=== PATIENT | female | born 1945 | race Caucasian/White ===

== ENCOUNTER 2018-10-13 16:38 | Emergency (ER) | payer MEDICARE ==
[2018-10-13 16:55] VITALS: BP 143/63
--- NOTE | 2018-10-13 17:15 | UC ---
Hip/Pelvis Pain - HPI Summary HPI Summary: 73-year-old woman comes in with a chief complaint of left-sided pelvic and hip pain status post her a fall 2 weeks ago. Patient tripped and fell landing on her knees and left side. She's had pain primarily in the groin left ischial protuberance left SI left hip area. Pain is worse with palpation and with movement and ambulation. Today the patient went to the chiropractic and she feels like the manipulation helped decrease her pain. Her chiropractic was concerned the possibility of a fracture and recommended imaging. No low back pain. Legs feel better. She has been able to walk but with some pain. She does occasionally have some burning sensation going down her left leg. No change in urination. She does have chronic GI issues which have not changed. - History Of Current Complaint Chief Complaint: UCGeneralIllness Stated Complaint: SP FALL-LT HIP INJURY Time Seen by Provider: 10/13/18 16:49 Pain Intensity: 0 - Allergies/Home Medications Allergies/Adverse Reactions: Allergies Allergy/AdvReac Type Severity Reaction Status Date / Time cisplatin Allergy Unknown Verified 10/13/18 17:04 Reaction Details fenoprofen Allergy Anaphylatic Verified 10/13/18 17:04 Shock hydrochlorothiazide Allergy Unknown Verified 10/13/18 17:04 Reaction Details hydrocodone Allergy Unknown Verified 10/13/18 17:04 Reaction Details naproxen Allergy Unknown Verified 10/13/18 17:04 Reaction Details propoxyphene [From Darvon] Allergy Unknown Verified 10/13/18 17:04 Reaction Details Tetanus Vaccines and Toxoid Allergy Anaphylatic Verified 10/13/18 17:04 Shock bee Allergy Anaphylatic Uncoded 10/13/18 17:04 Shock Home Medications: Home Medications Aspirin EC TAB* [Ecotrin EC Low Dose 81 MG*] 81 mg PO DAILY 10/13/18 [History Confirmed 10/13/18] Atenolol TAB* [Tenormin TAB* 25 MG] 25 mg PO DAILY 10/13/18 [History Confirmed 10/13/18] Cyanocobalamin TAB* [Vitamin B12 TAB*] 1,000 mcg PO DAILY 10/13/18 [History Confirmed 10/13/18] Dicyclomine CAP* [Bentyl CAP*] 1 tab TID 10/13/18 [History Confirmed 10/13/18] EPINEPHrine [Epipen 2-Quirino] 1 syr ONCE PRN 10/13/18 [History Confirmed 10/13/18] Folic Acid 1 tab DAILY 10/13/18 [History Confirmed 10/13/18] Gabapentin CAP(*) [Neurontin 300 CAP(*)] 300 mg DAILY 10/13/18 [History Confirmed 10/13/18] Mesalamine [Asacol Hd] 800 mg PO BID 10/13/18 [History Confirmed 10/13/18] Pantoprazole TAB * [Protonix TAB*] 40 mg PO DAILY 10/13/18 [History Confirmed ] Polyethylene Glycol 3350* [Miralax*] 1 packet DAILY 10/13/18 [History Confirmed 10/13/18] Simvastatin [Zocor] 40 mg PO DAILY 10/13/18 [History Confirmed 10/13/18] Sucralfate TAB* [Carafate*] 1 gm PO QID 10/13/18 [History Confirmed 10/13/18] amLODIPine TAB* [Norvasc 5 mg TAB*] 1 tab DAILY 10/13/18 [History Confirmed 08/26] metFORMIN* [Glucophage 1000 MG TAB *] 750 mg DAILY 10/13/18 [History Confirmed 10/13/18] PMH/Surg Hx/FS Hx/Imm Hx Previously Healthy: Yes Endocrine History: Diabetes GI/ History: Gastroesophageal Reflux - Surgical History Surgical History: Yes Surgery Procedure, Year, and Place: C SECTION, PLATE AND SCREWS LEFT WRIST, RIGHT ARM SURGERY. [facility] - Family History Known Family History: Positive: Non-Contributory - Social History Alcohol Use: Rare Substance Use Type: None Smoking Status (MU): Light Every Day Tobacco Smoker Type: Cigarettes Amount Used/How Often: 6 CIGS/DAY Review of Systems All Other Systems Reviewed And Are Negative: Yes Constitutional: Positive: Negative Skin: Positive: Bruising - b/l knees Eyes: Positive: Negative ENT: Positive: Negative Respiratory: Positive: Negative Cardiovascular: Positive: Negative Gastrointestinal: Positive: Negative Motor: Positive: Negative Neurovascular: Positive: Negative Musculoskeletal: Positive: Other: - SEE HPI Neurological: Positive: Other - see hpi Psychological: Positive: Negative Is Patient Immunocompromised?: No Physical Exam Triage Information Reviewed: Yes Appearance: Well-Appearing, Well-Nourished, Pain Distress - MILD WITH ROM Vital Signs: Initial Vital Signs Temp 98.4 F 10/13/18 16:49 Pulse 84 10/13/18 16:49 Resp 22 10/13/18 16:49 BP 143/63 10/13/18 16:49 Pulse Ox 98 10/13/18 16:49 Vital Signs Reviewed: Yes Eye Exam: Normal Eyes: Positive: Conjunctiva Clear Neck: Positive: Supple Respiratory: Positive: No respiratory distress Musculoskeletal: Positive: Other: - Tender to palpation in the left sacroiliac and iliac crest. Mild tenderness over the left proximal femur greater tuberosity. Pain decreases the range of motion in the left hip. Normal sensation distally in both legs. Feet ankles knees have full range of motion full-strength. Right hip has full range of motion full-strength. Patellar reflexes 1+ bilaterally. Neurological: Positive: Alert Psychological: Positive: Normal Response To Family, Age Appropriate Behavior Skin: Positive: Other - Ecchymosis bilateral knees Hip Injury Course/Dx - Course Course Of Treatment: Patient Name: FERNANDA BLUE Medical Record#: [id number] Ordering Physician: Ronnie Christie MD Acct.#: [id number] : 1945 Age: 73 Sex: F Location: [facility] [place] Exam Date: 10/13/181704 ADM Status: REG ER Order Information: CT PELVIS W/O Accession Number: [id number] CPT: 54325 INDICATION: Left hip injury. COMPARISON: There are no relevant prior studies available for comparison. TECHNIQUE: Contiguous axial sections were obtained through the pelvis without intravenous or oral contrast. Images were reconstructed in the coronal and sagittal planes. FINDINGS: PELVIC BONES: The bones are in normal alignment. No fracture is seen. 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 BOWEL: The visualized portion of the small bowel and colon appear nondistended. There appears to be a fibroid uterus present. LYMPH NODES: No significant enlarged pelvic or inguinal lymph nodes are seen. PERITONEUM: No free intraperitoneal air or fluid is seen. IMPRESSION: NO EVIDENCE FOR FRACTURE. <Electronically signed by Reynaldo Chandler MD in OV> 10/13/18 [address] reports with the patient and her family. Because of GI issues patient cannot take ibuprofen. She's got a take acetaminophen as needed as directed. Also she's fighting a cold is helping so therefore she's can use cold pack. Also her manipulation to the chiropractor helped so therefore she plans on seeing her chiropractor again. - Differential Dx/Diagnosis Provider Diagnosis: Left hip pain, Pain in joint involving left pelvic region and thigh Discharge - Sign-Out/Discharge Documenting (check all that apply): Patient Departure All imaging exams completed and their final reports reviewed: Yes - Discharge Plan Condition: Stable Disposition: HOME Patient Education Materials: Sacroiliitis (ED), Hip Pain (ED) Referrals: Tiffany Daniel CNM [Primary Care Provider] - Additional Instructions: FOLLOW UP WITH YOUR DOCTOR IF NOT COMPLETELY IMPROVED. GET REEVALUATED SOONER IF WORSE OR ANY QUESTIONS OR CONCERNS. - Billing Disposition and Condition Condition: STABLE Disposition: Home
--- OUTSIDE RECORDS SUMMARY | 2018-10-13 17:42 | XMS REPORT | Continuity of Care Document ---
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 Onset: 2012 Diverticular disease of colon Shar Conley M.D. 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 Independent with all ADL's Tobacco Use Start: Unknown End: Unknown Quit Smoking Status Reviewed: 09/21/18 Quit ETOH Use Rarely consumes alcohol Recreational Drug Use Denies Drug Use Tobacco Use Start: Unknown End: Unknown Patient is a former smoker Allergies, Adverse Reactions, Alerts Active Allergies Reaction Severity Comments Date Naproxen 08/03/2009 Hydrochlorothiazide 08/03/2009 Nalfon 08/03/2009 Darvon 08/03/2009 Hydrocodone 08/03/2009 Tetanus 08/03/2009 Bee Sting 08/03/2009 Cisplatin 08/03/2009 Medications Active Medications SIG Qnty Indications Ordering Provider Date Epipen 2-Quirino to use epipen 2units Z91.030 Siena Akers MD 06/23/2018 0.3mg/0.3ML after bee sting Solution Auto-Inject Metformin HCL ER Take One Tablet 90tabs Siena Akers MD 10/25/2015 750mg By Mouth Every Tablets ER 24HR Day Asacol HD 1 tab by mouth 180tabs Siena Akers MD 10/25/2015 800mg Tablets twice a day Miralax mix capful with Unknown Powder water daily Dicyclomine HCL 1 cap by mouth Unknown 10mg three times a Capsules day as needed Pantoprazole Sodium 1 by mouth Unknown 40mg every day Tablets NV-Acid Gas Relief 2 tabs twice Unknown 80mg daily Chewtabs Sucralfate 4 times daily Unknown 1gm Tablets Vitamin D3 1 by mouth Unknown 2000Unit every day Tablets Vitamin B-12 1 by mouth Unknown 1000mcg every day Tablets Aspir-81 1 by mouth Unknown 81mg Tablets DR every day Amlodipine 1 tab daily 90caps Gagen, Besylate/Benazepril MS Tiffany, Hydrochloride EVENING OR NIGHT NURSE SUPERVISOR-C, CNM 5-20mg Capsules Folic Acid po qd Unknown 800mcg Tablets Vitamin C 1 po qd Unknown 500mg Tablets Gabapentin 1 by mouth 90caps Gagen, 300mg Capsules every day MS Tiffany, EVENING OR NIGHT NURSE SUPERVISOR-C, CNM Simvastatin 1 tab by mouth 90tabs Siena Akers MD 40mg Tablets every day Atenolol 1 by mouth 90tabs Gagen, 25mg Tablets every day MS Tiffany, EVENING OR NIGHT NURSE SUPERVISOR-C, CNM History Medications Breo Ellipta take one puff in 60units J44.9 Gagen, 03/09/2018 - in the morning MS Tiffany, 09/21/2018 100-25mcg/Inh for copd EVENING OR NIGHT NURSE SUPERVISOR-C, CNM Aerosol Proair Respiclick take one or two 1units J44.9 Gagen, 03/09/2018 - puffs every 4-6 MS Tiffany, 09/21/2018 108(90Base) mcg/Act hours as needed EVENING OR NIGHT NURSE SUPERVISOR-C, CNM Aerosol for sob Albuterol Sulfate nebulized every 6 75ml J44.9 Gagen, 03/09/2018 - hours as needed MS Tiffany, 09/21/2018 (2.5mg/3ML) 0.083% for EVENING OR NIGHT NURSE SUPERVISOR-C, CNM Nebulizer sob/cough/wheezin g Doxycycline take one twice a 14caps J44.1 Gagen, 03/09/2018 - Monohydrate day MS Tiffany, 03/23/2018 100mg EVENING OR NIGHT NURSE SUPERVISOR-C, CNM Capsules Loperamide HCL Take two capsules 90caps R19.7 Gagen, 11/14/2017 - 2mg with onset of MS Tiffany, 09/21/2018 Capsules diarrhea and EVENING OR NIGHT NURSE SUPERVISOR-C, CNM then one capsule after each diarrhea. Maximum 16 mg (8 capsules) in 24 hours Azithromycin take 2 tablets 6tabs R05 Gag, 11/03/2017 - 250mg the first day and MS Tiffany, 03/09/2018 Tablets then 1 tablet for EVENING OR NIGHT NURSE SUPERVISOR-C, CNM next 4 days orally Ipratropium [place] Use 2 sprays in 15ml R05 Gag, 11/03/2017 - each nostril MS Tiffany, 03/09/2018 0.06% Solution twice a day EVENING OR NIGHT NURSE SUPERVISOR-C, CNM [facility] Mucus Extended Take one every 12 30tabs R05 Gagen, 11/03/2017 - Release hours as needed MS Tiffany, 03/09/2018 1200mg EVENING OR NIGHT NURSE SUPERVISOR-C, CNM Tablets ER 12HR Prednisone 2 tabs (40 mg) 10tabs Siena Akers MD 11/14/2016 - 20mg daily for 5 days Unknown Tablets for shortness of breath/wheezing Albuterol Sulfate nebulized every 6 75ml Siena Akers MD 11/14/2016 - hours as needed Unknown (2.5mg/3ML) 0.083% for Nebulizer sob/cough/wheezin g Vitamin D 1 tab by mouth 12caps Siena Akers MD 07/03/2016 - (Ergocalciferol) every week for 12 Unknown weeks then stop [id number] Capsules and switch to daily maintenance Epipen 2-Quirino for immediate sq 1units Siena Akers MD 10/25/2015 - injection to 06/23/2018 0.3mg/0.3ML Solution lateral thigh in Auto-Inject the event of shellfish exposure, may repeat in 5 min Alendronate Sodium 1 by mouth every 12tabs Siena Akers MD 10/25/2015 - week Unknown 70mg Tablets Triamcinolone apply spaingly 30units Siena Akers MD 10/25/2015 - Acetonide twice a day Unknown 0.1% Cream Ventolin HFA 1-2 puffs every 8.5units Siena Akers MD 10/25/2015 - 4-6 hours as Unknown 108(90Base) mcg/Act needed Aerosol Albuterol Sulfate nebulized every 6 375units Siena Akers MD 2015 - hours as needed Unknown (2.5mg/3ML) 0.083% Nebulizer Metronidazole 1 po tid 30tabs Yael, 04/28/2012 - 500mg Pedroer Mer, 10/25/2015 Tablets M.DJacob Epipen 2-Quirino Unknown - 10/25/2015 Klor-Con 10 1 po qd Unknown - 10Meq 10/25/2015 Tablets ER Ferrous Sulfate Unknown - 10/25/2015 325(65Fe) mg Tablets DR Magnesium Oxide 1 po every other 60tabs Unknown - 400mg day 11/03/2017 Tablets Albuterol Sulfate Unknown - 10/25/2015 Vitamin B 12 1 po qd Unknown - 500mcg 07/03/2016 Lozenges Tums Ultra 1000 1 po qd Unknown - Unknown 1000mg Chewtabs Stool Softener 1 po qd Unknown - 100mg Unknown Capsules Furosemide Unknown - 40mg Unknown Glimepiride Unknown - 2mg 10/25/2015 Amlodipine Besylate Unknown - Unknown 2.5mg Lisinopril Unknown - 5mg Unknown Immunizations CPT Code Status Date Vaccine Lot # 30989 Given 11/14/2017 Influenza Virus Vaccine, Quadrivalent, 36 Mos+, [id number] .[id number] Given 12/20/2015 Influenza Vaccine (Fluzone) Age 3 And Older Vital Signs Date Vital Result Comment 09/21/2018 11:31am BP Systolic 118 mmHg BP Diastolic 70 mmHg Body Temperature 98.1 F Heart Rate 60 /min Respiratory Rate 14 /min Height 61 inches 5'1" Weight 164.00 lb BMI (Body Mass Index) 31.0 kg/m2 BSA (Body Surface Area) 1.74 m2 [place] body weight in kilograms 48 kg O2 % BldC Oximetry 97 % room air 09/21/2018 11:28am Height 61 inches 5'1" [place] body weight in kilograms 48 kg 06/23/2018 10:08am BP Systolic Sitting Left Arm 128 mmHg BP Diastolic Sitting Left Arm 68 mmHg Body Temperature 98.5 F Heart Rate 90 /min Respiratory Rate 18 /min Height 61 inches 5'1" Weight 164.00 lb BMI (Body Mass Index) 31.0 kg/m2 BSA (Body Surface Area) 1.74 m2 [place] body weight in kilograms 48 kg O2 % BldC Oximetry 98 % Ra 03/23/2018 1:41pm BP Systolic Sitting Right Arm 110 mmHg BP Diastolic Sitting Right Arm 68 mmHg Body Temperature 99.4 F Heart Rate 62 /min Respiratory Rate 18 /min Height 61 inches 5'1" Weight 160.00 lb BMI (Body Mass Index) 30.2 kg/m2 BSA (Body Surface Area) 1.72 m2 [place] body weight in kilograms 48 kg O2 % BldC Oximetry 98 % ra 03/09/2018 12:59pm BP Systolic Sitting Left Arm 138 mmHg BP Diastolic Sitting Left Arm 62 mmHg Body Temperature 99.0 F Heart Rate 75 /min Respiratory Rate 18 /min Height 61 inches 5'1" Weight 162.00 lb BMI (Body Mass Index) 30.6 kg/m2 BSA (Body Surface Area) 1.73 m2 [place] body weight in kilograms 48 kg O2 % BldC Oximetry 94 % Ra 11/14/2017 12:57pm BP Systolic 123 mmHg BP Diastolic 60 mmHg Body Temperature 98.5 F Heart Rate 77 /min Respiratory Rate 18 /min Weight 157.00 lb O2 % BldC Oximetry 94 % 11/03/2017 1:04pm BP Systolic 158 mmHg recheck 120/73 BP Diastolic 74 mmHg recheck 120/73 Body Temperature 98.7 F Heart Rate 78 /min Respiratory Rate 20 /min Weight 159.44 lb O2 % BldC Oximetry 97 % Ra Pain Level 4 siatic 06/18/2017 12:50pm BP Systolic 135 mmHg BP Diastolic 77 mmHg Heart Rate 67 /min Respiratory Rate 16 /min Height 61 inches 5'1" Weight 163.25 lb BMI (Body Mass Index) 30.8 kg/m2 BSA (Body Surface Area) 1.73 m2 [place] body weight in kilograms 48 kg O2 % BldC Oximetry 96 % 01/20/2017 9:13am BP Systolic Sitting Left Arm 146 mmHg BP Diastolic Sitting Left Arm 81 mmHg Heart Rate 73 /min Respiratory Rate 20 /min Height 61 inches 5'1" Weight 160.00 lb BMI (Body Mass Index) 30.2 kg/m2 BSA (Body Surface Area) 1.72 m2 [place] body weight in kilograms 48 kg 11/14/2016 3:22pm BP Systolic 147 mmHg BP Diastolic 84 mmHg Body Temperature 98.9 F Heart Rate 80 /min Respiratory Rate 14 /min Height 61 inches 5'1" [place] body weight in kilograms 48 kg O2 % BldC Oximetry 94 % 07/03/2016 11:12am BP Systolic 111 mmHg BP Diastolic 59 mmHg Heart Rate 56 /min Height 61 inches 5'1" Weight 164.00 lb BMI (Body Mass Index) 31.0 kg/m2 BSA (Body Surface Area) 1.74 m2 02/16/2016 12:59pm BP Systolic 133 mmHg BP Diastolic 68 mmHg Heart Rate 84 /min Height 61 inches 5'1" Weight 159.00 lb BMI (Body Mass Index) 30.0 kg/m2 BSA (Body Surface Area) 1.71 m2 10/25/2015 3:42pm BP Systolic Sitting Left Arm 142 mmHg BP Diastolic Sitting Left Arm 72 mmHg Respiratory Rate 76 /min Height 61 inches 5'1" Weight 162.25 lb BMI (Body Mass Index) 30.7 kg/m2 BSA (Body Surface Area) 1.73 m2 O2 % BldC Oximetry 98 % 04/09/2012 11:51am BP Systolic Sitting Right Arm 158 mmHg BP Diastolic Sitting Right Arm 103 mmHg Heart Rate 67 /min Respiratory Rate 20 /min Height 61 inches 5'1" Weight 179.00 lb BMI (Body Mass Index) 33.8 kg/m2 07/17/2009 1:12pm Height 61 inches 5'1" Weight 195.00 lb BMI (Body Mass Index) 36.8 kg/m2 Results Test Date Facility Test Result H/L Range Note CBC 10/02/2018 [facility] White Blood Count 11.1 K/uL High 3.1-10.7 1 [address] [place] [address] [phone] Red Blood Count 3.80 M/uL Low 3.90-5.40 Hemoglobin 11.1 gm/dL Low 11.6-15.8 Hematocrit 34.8 % Low 36.0-46.1 Mean Cell Volume 91.6 fl Normal 80.9-99.0 Mean Corpuscular HGB 29.2 pg Normal 25.9-32.7 Mean Corpuscular HGB Conc 31.9 g/dL Normal 30.8-34.3 Platelet Count 216 K/uL Normal 155-360 Red Cell Distri Width SD 46.4 fl Normal 36-47 Red Cell Distri Width %CV 13.9 % Normal 11.7-14.4 Mean Platelet Volume 9.7 fl Normal 8.9-12.4 NRBC % 0.0 /100WBC < 10/ 100 WBC Basic Metabolic Panel 10/02/2018 [facility] Glucose 275 mg/dL High 74-106 [address] [place], [place] [id number] [phone] BUN 34 mg/dL High 7-18 Creatinine 1.6 mg/dL High 0.6-1.3 Glom Filtration Rate, Estimate 33 mL/min >60 If 41 mL/min >60 2 BUN/Creat 21.2 ratio Sodium 140 mmol/L Normal 136-145 Potassium 4.3 mmol/L Normal 3.5-5.1 Chloride 106 mmol/L Normal 98-107 Carbon Dioxide 25 mmol/L Normal 21-32 Anion Gap 9 mEq/L Normal 8-16 Calcium 9.5 mg/dL Normal 8.5-10.1 Aot Request 10/01/2018 [facility] Aot Request Test(s) added [address] [place] [address] [phone] Tests to be added: magnesium CBC W/Automated 10/01/2018 [facility] White Blood 8.9 K/uL Normal 3.1-10.[address] [place] [address] [phone] Red Blood Count 3.70 M/uL Low 3.90-5.40 Hemoglobin 10.8 gm/dL Low 11.6-15.8 Hematocrit 34.8 % Low 36.0-46.1 Mean Cell Volume 94.1 fl Normal 80.9-99.0 Mean Corpuscular HGB 29.2 pg Normal 25.9-32.7 Mean Corpuscular HGB Conc 31.0 g/dL Normal 30.8-34.3 Platelet Count 197 K/uL Normal 155-360 Red Cell Distri Width SD 46.3 fl Normal 36-47 Red Cell Distri Width %CV 13.6 % Normal 11.7-14.4 Mean Platelet Volume 10.3 fl Normal 8.9-12.4 Neut% 93.3 % High 40.4-72.8 Lymph % 4.5 % Low 20.0-42.0 [place]imes % 1.6 % Low 4.3-13.2 Eo% 0.0 % Normal 0.0-6.6 Bas% 0.2 % Normal 0.0-1.1 Immature Grans 0.4 % Normal 0.0-5.0 NRBC % 0.0 /100WBC < 10/ 100 WBC Neut# 8.30 K/uL High 1.8-7.0 Lymph # 0.40 K/uL Low 1.0-4.0 Grimes # 0.14 K/uL Low 0.3-0.9 Eos # 0.00 K/uL Normal 0.0-0.5 Baso # 0.02 K/uL Normal 0.0-0.1 Immature Grans Absolute 0.04 K/uL NRBC # 0.00 K/uL Basic Metabolic Panel 10/01/2018 [facility] Glucose 298 mg/dL High 74-106 [address] [place] [address] [phone] BUN 22 mg/dL High 7-18 Creatinine 1.4 mg/dL High 0.6-1.3 Glom Filtration Rate, Estimate 39 mL/min >60 If 47 mL/min >60 4 BUN/Creat 15.7 ratio Sodium 138 mmol/L Normal 136-145 Potassium 5.0 mmol/L Normal 3.5-5.1 Chloride 107 mmol/L Normal 98-107 Carbon Dioxide 24 mmol/L Normal 21-32 Anion Gap 7 mEq/L Low 8-16 Calcium 8.5 mg/dL Normal 8.5-10.1 Laboratory test 10/01/2018 [facility] Magnesium 2.0 mg/dL Normal 1.8-2.[address] [place] [address] [phone] Aot Request 09/30/2018 [facility] Aot Request Test(s) 5, [address] [place] [address] [phone] Tests to be added: CRP, ESR, MAGNES <SEE NOTE> 7 Laboratory 09/30/2018 [facility] Sedimentation 47 mm/hr Normal 2-55 8 test finding [address] Rate [place] [address] [phone] CBC 09/30/2018 [facility] White Blood Count 10.1 K/uL Normal 3.1-10. W/Automated [address] [place] [address] [phone] Red Blood Count 4.11 M/uL Normal 3.90-5.40 Hemoglobin 12.4 gm/dL Normal 11.6-15.8 Hematocrit 37.2 % Normal 36.0-46.1 Mean Cell Volume 90.5 fl Normal 80.9-99.0 Mean Corpuscular HGB 30.2 pg Normal 25.9-32.7 Mean Corpuscular HGB Conc 33.3 g/dL Normal 30.8-34.3 Platelet Count 223 K/uL Normal 155-360 Red Cell Distri Width SD 44.7 fl Normal 36-47 Red Cell Distri Width %CV 13.5 % Normal 11.7-14.4 Mean Platelet Volume 10.3 fl Normal 8.9-12.4 Neut% 77.7 % High 40.4-72.8 Lymph % 13.3 % Low 20.0-42.0 Grimes % 7.0 % Normal 4.3-13.2 Eo% 0.6 % Normal 0.0-6.6 Bas% 0.7 % Normal 0.0-1.1 Immature Grans 0.7 % Normal 0.0-5.0 NRBC % 0.0 /100WBC < 10/ 100 WBC Neut# 7.84 K/uL High 1.8-7.0 Lymph # 1.34 K/uL Normal 1.0-4.0 Grimes # 0.71 K/uL Normal 0.3-0.9 Eos # 0.06 K/uL Normal 0.0-0.5 Baso # 0.07 K/uL Normal 0.0-0.1 Immature Grans Absolute 0.07 K/uL NRBC # 0.00 K/uL CBC W/Automated 09/16/2018 [facility] White Blood 8.8 K/uL Normal 3.1-10.7 [address] [place] [address] [phone] Red Blood Count 3.90 M/uL Normal 3.90-5.40 Hemoglobin 11.7 gm/dL Normal 11.6-15.8 Hematocrit 35.3 % Low 36.0-46.1 Mean Cell Volume 90.5 fl Normal 80.9-99.0 Mean Corpuscular HGB 30.0 pg Normal 25.9-32.7 Mean Corpuscular HGB Conc 33.1 g/dL Normal 30.8-34.3 Platelet Count 244 K/uL Normal 155-360 Red Cell Distri Width SD 45.1 fl Normal 36-47 Red Cell Distri Width %CV 13.9 % Normal 11.7-14.4 Mean Platelet Volume 11.0 fl Normal 8.9-12.4 Neut% 52.6 % Normal 40.4-72.8 Lymph % 28.5 % Normal 20.0-42.0 Grimes % 12.8 % Normal 4.3-13.2 Eo% 0.2 % Normal 0.0-6.6 Bas% 0.3 % Normal 0.0-1.1 Immature Grans 5.6 % Critical high 0.0-5.0 NRBC % 0.2 /100WBC < 10/ 100 WBC Neut# 4.60 K/uL Normal 1.8-7.0 Lymph # 2.49 K/uL Normal 1.0-4.0 Grimes # 1.12 K/uL High 0.3-0.9 Eos # 0.02 K/uL Normal 0.0-0.5 Baso # 0.03 K/uL Normal 0.0-0.1 Immature Grans Absolute 0.49 K/uL NRBC # 0.02 K/uL Comprehensive Metabolic 09/16/2018 [facility] Glucose 117 mg/dL High 74-106 Panel [address] [place] [address] [phone] BUN 34 mg/dL High 7-18 Creatinine 1.3 mg/dL Normal 0.6-1.3 Glom Filtration Rate, Estimate 43 mL/min >60 If 52 mL/min >60 10 BUN/Creat 26.1 ratio Sodium 141 mmol/L Normal 136-145 Potassium 3.2 mmol/L Low 3.5-5.1 Chloride 109 mmol/L High 98-107 Carbon Dioxide 25 mmol/L Normal 21-32 Anion Gap 7 mEq/L Low 8-16 Calcium 9.2 mg/dL Normal 8.5-10.1 Total Protein 7.3 g/dL Normal 6.4-8.2 Albumin 3.6 g/dL 3.4-5.0 Globulin 3.7 g/dL Normal 1.9-4.3 Alb/Glob 1.0 ratio Bilirubin,Total 0.4 mg/dL Normal 0.2-1.0 Sgot/Ast 17 U/L Normal 15-37 SGPT/Alt 23 U/L Normal 12-78 Alkaline Phosphatase 60 U/L Normal 45-117 LDL Cholesterol Profile 09/16/2018 [facility] Cholesterol 160 mg/dL <200 11 [address] [place] [address] [phone] Triglycerides 289 mg/dL High <150 12 HDL Cholesterol 45 mg/dL >40 13 LDL-Cholesterol 57 mg/dL < 100 14 Slide Review 09/16/2018 [facility] Slide Review DIFF ORDERED [address] [place] [address] [phone] Differential-WBC 09/16/2018 [facility] Total Cells 100 #CELLS Confirm [address] [place] [address] [phone] Myelocyte% 2 % 0% Metamyelocyte% 4 % 0% Neutrophils% 66 % Normal 33-73 Lymph% 25 % Normal 20-42 Atypical Lymph% 1 % Normal 0-7 Monocyte% 2 % Normal 0-10 Platelet Estimate NORMAL Polychromasia 0-1+ Poikilocytosis 0-1+ Anisocytosis 0-1+ Macrocytosis 0-1+ Elliptocytes 0-1+ Glycohemoglobin 09/16/2018 [facility] Glycohemoglobin 6.9 % High 4.2-6.[address] (A1c) [place] [address] [phone] eAG 151 mg/dL Serum or plasma 09/13/2018 N2N/CCD Import Serum or plasma 0.9 0.6-1.3 creatinine creatinine measurement measurement (mass/volum (mass/volume) Serum or plasma 09/13/2018 N2N/CCD Import Serum or plasma 18 7-18 urea nitrogen urea nitrogen measurement measurement (mass/vo (mass/volume) Serum or plasma 09/13/2018 N2N/CCD Import Serum or plasma 180 High 74- 106 glucose glucose measurement measurement (mass/volume) (mass/volume) Automated blood 09/13/2018 N2N/CCD Import Automated blood 0.00 nucleated nucleated erythrocyte count erythrocyte count (count (count/volume) Automated blood 09/13/2018 N2N/CCD Import Automated blood 0.08 immature immature granulocyte count granulocyte count (number (number/volume) Automated blood 09/13/2018 N2N/CCD Import Automated blood 0.02 0.0-0.1 basophil count basophil count (number/volume) (number/volume) Automated blood 09/13/2018 N2N/CCD Import Automated blood 0.00 0.0-0.5 eosinophil count eosinophil count Blood monocytes 09/13/2018 N2N/CCD Import Blood monocytes 0.26 Low 0.3- 0.9 automated count automated count (number/volume) (number/volume) Automated blood 09/13/2018 N2N/CCD Import Automated blood 0.71 Low 1.0- 4.0 lymphocyte count lymphocyte count (number/volume) (number/volume) Estimated 09/13/2018 N2N/CCD Import Estimated >60 >60 glomerular glomerular filtration rate filtration rate (GFR) non-Afr (GFR) non- GFR/Bsa 09/13/2018 N2N/CCD Import GFR/Bsa pred.black >60 >60 pred.black SerPl SerPl MDRD-ArVRat MDRD-ArVRat Serum or plasma 09/13/2018 N2N/CCD Import Serum or plasma 20.0 urea urea nitrogen/creatini nitrogen/creatinine ne mass rati mass ratio Sodium SerPl-sCnc 09/13/2018 N2N/CCD Import Sodium SerPl-sCnc 142 136- 145 Serum or plasma 09/13/2018 N2N/CCD Import Serum or plasma 4.7 3.5-5.1 potassium potassium measurement measurement Serum or plasma 09/13/2018 N2N/CCD Import Serum or plasma 112 High 98- 107 chloride chloride measurement measurement Co2 SerPl-sCnc 09/13/2018 N2N/CCD Import Co2 SerPl-sCnc 22 21-32 Serum or plasma 09/13/2018 N2N/CCD Import Serum or plasma 8 8-16 anion gap anion gap Serum or plasma 09/13/2018 N2N/CCD Import Serum or plasma 8.2 Low 8.5- 10.1 calcium calcium measurement measurement (mass/volume) (mass/volume) Laboratory test 09/13/2018 [facility] C-Reactive 45.7 High <3.0 [address] Protein,Quant mg/L [place], [place] [id number] [phone] Basic Metabolic 09/13/2018 [facility] Glucose 180 High 74-[address] mg/[place] [address] [phone] BUN 18 mg/dL Normal 7-18 Creatinine 0.9 mg/dL Normal 0.6-1.3 Glom Filtration Rate, Estimate >60 mL/min >60 If >60 mL/min >60 17 BUN/Creat 20.0 ratio Sodium 142 mmol/L Normal 136-145 Potassium 4.7 mmol/L 3.5-5.1 Chloride 112 mmol/L High 98-107 Carbon Dioxide 22 mmol/L Normal 21-32 Anion Gap 8 mEq/L Normal 8-16 Calcium 8.2 mg/dL Low 8.5-10.1 CBC W/Automated 09/13/2018 [facility] White Blood 7.0 K/uL Normal 3.1-10.[address] [place] [address] [phone] Red Blood Count 3.33 M/uL Low 3.90-5.40 Hemoglobin 9.7 gm/dL Low 11.6-15.8 Hematocrit 30.5 % Low 36.0-46.1 Mean Cell Volume 91.6 fl Normal 80.9-99.0 Mean Corpuscular HGB 29.1 pg Normal 25.9-32.7 Mean Corpuscular HGB Conc 31.8 g/dL Normal 30.8-34.3 Platelet Count 163 K/uL Normal 155-360 Red Cell Distri Width SD 44.9 fl Normal 36-47 Red Cell Distri Width %CV 13.5 % Normal 11.7-14.4 Mean Platelet Volume 10.8 fl Normal 8.9-12.4 Neut% 84.7 % High 40.4-72.8 Lymph % 10.2 % Low 20.0-42.0 Grimes % 3.7 % Low 4.3-13.2 Eo% 0.0 % Normal 0.0-6.6 Bas% 0.3 % Normal 0.0-1.1 Immature Grans 1.1 % Normal 0.0-5.0 NRBC % 0.0 /100WBC < 10/ 100 WBC Neut# 5.92 K/uL Normal 1.8-7.0 Lymph # 0.71 K/uL Low 1.0-4.0 Grimes # 0.26 K/uL Low 0.3-0.9 Eos # 0.00 K/uL Normal 0.0-0.5 Baso # 0.02 K/uL Normal 0.0-0.1 Immature Grans Absolute 0.08 K/uL NRBC # 0.00 K/uL Capillary blood 09/13/2018 N2N/CCD Import Capillary blood 201 High 70- 110 glucose measurement glucose measurement by glucometer by glucometer (mass/volume) Automated leukocyte 09/13/2018 N2N/CCD Import Automated leukocyte 7.0 3.1-10.7 count count (number/volume) (number/volume) Blood erythrocytes 09/13/2018 N2N/CCD Import Blood erythrocytes 3.33 Low 3.90-5.40 automated count automated count (number/volume) (number/volume) Blood hemoglobin 09/13/2018 N2N/CCD Import Blood hemoglobin 9.7 Low 11.6- 15.8 measurement measurement (mass/volume) (mass/volume) Hct VFr Bld Auto 09/13/2018 N2N/CCD Import Hct VFr Bld Auto 30.5 Low 36.0 -46.1 Automated 09/13/2018 N2N/CCD Import Automated 91.6 80.9-99.0 erythrocyte mean erythrocyte mean corpuscular volume corpuscular volume (MCV (MCV) measurement Automated 09/13/2018 N2N/CCD Import Automated 29.1 25.9-32.7 erythrocyte mean erythrocyte mean corpuscular corpuscular hemoglobin hemoglobin (mass per erythrocyte) Automated 09/13/2018 N2N/CCD Import Automated 31.8 30.8-34.3 erythrocyte mean erythrocyte mean corpuscular corpuscular hemoglobin hemoglobin concentration measurement (mass/volume) Automated blood 09/13/2018 N2N/CCD Import Automated blood 163 155-360 platelet count platelet count (count/volume) (count/volume) Automated 09/13/2018 N2N/CCD Import Automated 44.9 36-47 erythrocyte erythrocyte distribution width distribution width Automated 09/13/2018 N2N/CCD Import Automated 13.5 11.7-14.4 erythrocyte erythrocyte distribution width distribution width ratio ratio Automated blood 09/13/2018 N2N/CCD Import Automated blood 10.8 8.9-12.4 platelet mean volume platelet mean measurement volume measurement Automated blood 09/13/2018 N2N/CCD Import Automated blood 84.7 High 40.4- 72.8 neutrophils/100 neutrophils/100 leukocytes leukocytes Automated blood 09/13/2018 N2N/CCD Import Automated blood 10.2 Low 20.0- 42.0 lymphocytes/100 lymphocytes/100 leukocytes leukocytes Automated monocyte % 09/13/2018 N2N/CCD Import Automated monocyte 3.7 Low 4.3-13.2 % Automated eosinophil 09/13/2018 N2N/CCD Import Automated 0.0 0.0-6.6 % eosinophil % Automated basophil % 09/13/2018 N2N/CCD Import Automated basophil 0.3 0.0-1.1 % Automated blood 09/13/2018 N2N/CCD Import Automated blood 1.1 0.0-5.0 immature granulocyte immature count as perc granulocyte count as percentage of total leukocytes Automated blood 09/13/2018 N2N/CCD Import Automated blood 0.0 < 10/ 100 nucleated nucleated WBC erythrocyte count as erythrocyte count per as percentage of total leukocytes Absolute neutrophil 09/13/2018 N2N/CCD Import Absolute neutrophil 5.92 1.8-7.0 count count Serum or plasma 09/12/2018 N2N/CCD Import Serum or plasma 40 Low 45-117 alkaline phosphatase alkaline measurement ( phosphatase measurement (enzymatic activity/volume) Serum or plasma 09/12/2018 N2N/CCD Import Serum or plasma 15 12-78 alanine alanine aminotransferase aminotransferase measureme measurement (enzymatic activity/volume) Serum or plasma 09/12/2018 N2N/CCD Import Serum or plasma 11 Low 15-37 aspartate aspartate aminotransferase aminotransferase measure measurement (enzymatic activity/volume) Serum or plasma 09/12/2018 N2N/CCD Import Serum or plasma 0.5 0.2-1.0 total bilirubin total bilirubin measurement (mass/ measurement (mass/volume) Serum or plasma 09/12/2018 N2N/CCD Import Serum or plasma 0.8 albumin/globulin albumin/globulin mass ratio mass ratio Serum globulin 09/12/2018 N2N/CCD Import Serum globulin 3.4 1.9-4.3 measurement by measurement by calculation (mass/vo calculation (mass/volume) Serum or plasma 09/12/2018 N2N/CCD Import Serum or plasma 2.7 Low 3.4- 5.0 albumin measurement albumin measurement (mass/volume) (mass/volume) CBC W/Automated Diff 09/12/2018 [facility] White Blood Count 6.0 Normal 3.1- 10.[address] K/[place] [address] [phone] Red Blood Count 3.23 M/uL Low 3.90-5.40 Hemoglobin 9.7 gm/dL Low 11.6-15.8 Hematocrit 30.0 % Low 36.0-46.1 Mean Cell Volume 92.9 fl Normal 80.9-99.0 Mean Corpuscular HGB 30.0 pg Normal 25.9-32.7 Mean Corpuscular HGB Conc 32.3 g/dL Normal 30.8-34.3 Platelet Count 162 K/uL Normal 155-360 Red Cell Distri Width SD 47.4 fl High 36-47 Red Cell Distri Width %CV 14.0 % Normal 11.7-14.4 Mean Platelet Volume 10.5 fl Normal 8.9-12.4 Neut% 62.8 % Normal 40.4-72.8 Lymph % 21.4 % Normal 20.0-42.0 Grimes % 12.1 % Normal 4.3-13.2 Eo% 2.5 % Normal 0.0-6.6 Bas% 0.7 % Normal 0.0-1.1 Immature Grans 0.5 % Normal 0.0-5.0 NRBC % 0.0 /100WBC < 10/ 100 WBC Neut# 3.80 K/uL Normal 1.8-7.0 Lymph # 1.29 K/uL Normal 1.0-4.0 Grimes # 0.73 K/uL Normal 0.3-0.9 Eos # 0.15 K/uL Normal 0.0-0.5 Baso # 0.04 K/uL Normal 0.0-0.1 Immature Grans Absolute 0.03 K/uL NRBC # 0.00 K/uL Comprehensive Metabolic 09/12/2018 [facility] Glucose 121 mg/dL High 74-[address] [place] [address] [phone] BUN 27 mg/dL High 7-18 Creatinine 1.0 mg/dL Normal 0.6-1.3 Glom Filtration Rate, Estimate 58 mL/min >60 If >60 mL/min >60 18 BUN/Creat 27.0 ratio Sodium 143 mmol/L Normal 136-145 Potassium 3.8 mmol/L Normal 3.5-5.1 Chloride 115 mmol/L High 98-107 Carbon Dioxide 23 mmol/L Normal 21-32 Anion Gap 5 mEq/L Low 8-16 Calcium 7.6 mg/dL Low 8.5-10.1 Total Protein 6.1 g/dL Low 6.4-8.2 Albumin 2.7 g/dL Low 3.4-5.0 Globulin 3.4 g/dL Normal 1.9-4.3 Alb/Glob 0.8 ratio Bilirubin,Total 0.5 mg/dL Normal 0.2-1.0 Sgot/Ast 11 U/L Low 15-37 19 SGPT/Alt 15 U/L Normal 12-78 Alkaline Phosphatase 40 U/L Low 45-117 Laboratory 09/12/2018 [facility] C-Reactive 70.4 High <3.0 test finding [address] Protein,Quant mg/[place] [address] [phone] Serum or 09/12/2018 N2N/CCD Import Serum or plasma 6.1 Low 6.4-8.2 plasma protein protein measurement measurement (mass/volume) (mass/volume) Lactic Acid 09/11/2018 [facility] Lactic Acid 2.4 Critical 0.4-1.[address] mmol/L high [place], [place] [id number] [phone] Lab Reflex >2.0 for Sepsis? Y Serum or plasma 09/11/2018 N2N/CCD Import Serum or plasma 1.5 0.4-1.9 lactate measurement lactate measurement (moles/volume) (moles/volume) Blood estimated 09/11/2018 N2N/CCD Import Blood estimated 148 average glucose average glucose determination by e determination by estimation from glycated hemoglobin (mass/volume) HgbA1c % 09/11/2018 N2N/CCD Import HgbA1c % 6.8 High 4.2-6.3 Lactic Acid 09/11/2018 [facility] Lactic Acid 1.5 Normal 0.4-1.[address] mmol/[place] [address] [phone] Lab Reflex >2.0 for Sepsis? N Laboratory test 09/11/2018 [facility] Magnesium 1.7 mg/dL Low 1.8-2.4 finding [address] [place], [place] [id number] [phone] C-Reactive Protein,Quant 69.2 mg/L High <3.0 Comprehensive Metabolic 09/11/2018 [facility] Glucose 160 mg/dL High 74-106 Panel [address] [place] [address] [phone] BUN 41 mg/dL High 7-18 Creatinine 1.4 mg/dL High 0.6-1.3 Glom Filtration Rate, Estimate 39 mL/min >60 If 47 mL/min >60 20 BUN/Creat 29.2 ratio Sodium 143 mmol/L Normal 136-145 Potassium 3.7 mmol/L Normal 3.5-5.1 Chloride 114 mmol/L High 98-107 Carbon Dioxide 20 mmol/L Low 21-32 Anion Gap 9 mEq/L Normal 8-16 Calcium 7.4 mg/dL Low 8.5-10.1 Total Protein 6.1 g/dL Low 6.4-8.2 Albumin 2.7 g/dL Low 3.4-5.0 Globulin 3.4 g/dL Normal 1.9-4.3 Alb/Glob 0.8 ratio Bilirubin,Total 0.6 mg/dL Normal 0.2-1.0 Sgot/Ast 12 U/L Low 15-37 21 SGPT/Alt 15 U/L Normal 12-78 Alkaline Phosphatase 41 U/L Low 45-117 Glycohemoglobin 09/11/2018 [facility] Glycohemoglobin 6.8 % High 4.2-6.[address] (A1c) [place] [address] [phone] eAG 148 mg/dL CBC W/Automated 09/11/2018 [facility] White Blood 6.3 K/uL Normal 3.1-10.[address] [place] [address] [phone] Red Blood Count 3.35 M/uL Low 3.90-5.40 Hemoglobin 9.9 gm/dL Low 11.6-15.8 Hematocrit 30.7 % Low 36.0-46.1 Mean Cell Volume 91.6 fl Normal 80.9-99.0 Mean Corpuscular HGB 29.6 pg Normal 25.9-32.7 Mean Corpuscular HGB Conc 32.2 g/dL Normal 30.8-34.3 Platelet Count 183 K/uL Normal 155-360 Red Cell Distri Width SD 45.9 fl Normal 36-47 Red Cell Distri Width %CV 13.8 % Normal 11.7-14.4 Mean Platelet Volume 10.5 fl Normal 8.9-12.4 Neut% 64.8 % Normal 40.4-72.8 Lymph % 17.8 % Low 20.0-42.0 Grimes % 16.2 % High 4.3-13.2 Eo% 0.6 % Normal 0.0-6.6 Bas% 0.3 % Normal 0.0-1.1 Immature Grans 0.3 % Normal 0.0-5.0 NRBC % 0.0 /100WBC < 10/ 100 WBC Neut# 4.08 K/uL Normal 1.8-7.0 Lymph # 1.12 K/uL Normal 1.0-4.0 Grimes # 1.02 K/uL High 0.3-0.9 Eos # 0.04 K/uL Normal 0.0-0.5 Baso # 0.02 K/uL Normal 0.0-0.1 Immature Grans Absolute 0.02 K/uL NRBC # 0.00 K/uL Serum or plasma 09/10/2018 N2N/CCD Import Serum or plasma 197 56-289 lipase lipase measurement measurement (enzymatic (enzymatic acti activity/volume) Serum or plasma 09/10/2018 N2N/CCD Import Serum or plasma 3.2 2.5-4.0 phosphate phosphate measurement measurement (mass/volume) (mass/volume Laboratory test 09/10/2018 [facility] Phosphorous 3.2 Normal 2.5-4.0 [address] mg/dL [place], [place] [id number] [phone] C-Reactive Protein,Quant 6.2 mg/L High <3.0 Lactic Acid 09/10/2018 [facility] Lactic Acid 2.9 mmol/L Critical 0.4-1.[address] [place], [place] [id number] [phone] Lab Reflex >2.0 for Sepsis? Y Laboratory test 09/10/2018 [facility] Magnesium 1.8 mg/dL Normal 1.8-2.4 finding [address] [place], [place] [address] [phone] Lipase 197 U/L Normal 56-289 Troponin-I < 0.015 ng/mL 24 Comprehensive Metabolic 09/10/2018 [facility] Glucose 215 mg/dL High 74-106 Panel [address] [place], [place] [id number] [phone] BUN 38 mg/dL High 7-18 Creatinine 1.5 mg/dL High 0.6-1.3 Glom Filtration Rate, Estimate 36 mL/min >60 If 44 mL/min >60 25 BUN/Creat 25.3 ratio Sodium 138 mmol/L Normal 136-145 Potassium 4.2 mmol/L Normal 3.5-5.1 Chloride 107 mmol/L Normal 98-107 Carbon Dioxide 18 mmol/L Low 21-32 Anion Gap 13 mEq/L Normal 8-16 Calcium 9.0 mg/dL Normal 8.5-10.1 Total Protein 7.9 g/dL Normal 6.4-8.2 Albumin 3.8 g/dL Normal 3.4-5.0 Globulin 4.1 g/dL Normal 1.9-4.3 Alb/Glob 0.9 ratio Bilirubin,Total 0.5 mg/dL Normal 0.2-1.0 Sgot/Ast 18 U/L Normal 15-37 SGPT/Alt 22 U/L Normal 12-78 Alkaline Phosphatase 59 U/L Normal 45-117 CBC W/Automated 09/10/2018 [facility] White Blood 10.8 K/uL High 3.1-10.[address] [place] [address] [phone] Red Blood Count 4.22 M/uL Normal 3.90-5.40 Hemoglobin 12.7 gm/dL Normal 11.6-15.8 Hematocrit 37.9 % Normal 36.0-46.1 Mean Cell Volume 89.8 fl Normal 80.9-99.0 Mean Corpuscular HGB 30.1 pg Normal 25.9-32.7 Mean Corpuscular HGB Conc 33.5 g/dL Normal 30.8-34.3 Platelet Count 236 K/uL Normal 155-360 Red Cell Distri Width SD 42.9 fl Normal 36-47 Red Cell Distri Width %CV 13.2 % Normal 11.7-14.4 Mean Platelet Volume 10.2 fl Normal 8.9-12.4 Neut% 84.7 % High 40.4-72.8 Lymph % 8.6 % Low 20.0-42.0 Grimes % 5.5 % Normal 4.3-13.2 Eo% 0.2 % Normal 0.0-6.6 Bas% 0.4 % Normal 0.0-1.1 Immature Grans 0.6 % Normal 0.0-5.0 NRBC % 0.0 /100WBC < 10/ 100 WBC Neut# 9.13 K/uL High 1.8-7.0 Lymph # 0.93 K/uL Low 1.0-4.0 Grimes # 0.59 K/uL Normal 0.3-0.9 Eos # 0.02 K/uL Normal 0.0-0.5 Baso # 0.04 K/uL Normal 0.0-0.1 Immature Grans Absolute 0.06 K/uL NRBC # 0.00 K/uL * Miscellaneous 09/10/2018 N2N/CCD Import * Miscellaneous Test(s) studies (set) studies (set) added Aot Request 09/10/2018 [facility] Aot Request Test(s) 26, [address] [place] [address] [phone] Tests to be added: magnesium crp ph <SEE NOTE> 28 Urine appearance 09/10/2018 N2N/CCD Import Urine appearance Clear Clear determination determination Urine color 09/10/2018 N2N/CCD Import Urine color Yellow Yellow determination determination Ua RFX Micro & 09/10/2018 [facility] Urine Color YELLOW Yellow Culture II [address] [place] [address] [phone] Urine Clarity CLEAR Clear Urine Glucose - Dipstick NEGATIVE mg/dL Negative Urine Bilirubin - Dipstick NEGATIVE Negative Urine Ketone NEGATIVE mg/dL Negative Urine Specific Dun[place] >=1.030 Normal 1.010-1.030 Urine Blood NEGATIVE Negative Urine PH 5.5 Low 6.5-7.5 Urine Protein - Dipstick TRACE mg/dL Negative Urine Urobilinogen - Dipstick 0.2 E.U./dL Normal 0.2-1.0 Urine Nitrite - Dipstick NEGATIVE Negative Urine Leuk Esterase NEGATIVE Negative Source: URINE, CLEAN CAT <SEE NOTE> 29 Laboratory 09/10/2018 [facility] Lactic 2.5 mmol/L Critical 0.4-1.9 test finding [address] [place] [address] [phone] Lactic Acid 09/10/2018 [facility] Lactic 3.3 mmol/L Critical 0.4-1.9 [address] [facility] [address] [phone] Lab Reflex >2.0 for Sepsis? N Urine glucose 09/10/2018 N2N/CCD Import Urine glucose Negative Negative measurement by measurement by automated test automated test strip strip (mass/volume) Urine total 09/10/2018 N2N/CCD Import Urine total Negative Negative bilirubin bilirubin detection by detection by automated test automated test strip Urine ketones 09/10/2018 N2N/CCD Import Urine ketones Negative Negative measurement by measurement by automated test automated test strip strip (mass/volume) Specific gravity 09/10/2018 N2N/CCD Import Specific gravity >=1.030 1.010-1.030 of Urine by of Urine by Automated test Automated test strip strip Urine hemoglobin 09/10/2018 N2N/CCD Import Urine hemoglobin Negative Negative detection by detection by automated test automated test strip strip Urine pH 09/10/2018 N2N/CCD Import Urine pH 5.5 Low 6.5-7.5 measurement by measurement by automated test automated test strip strip Urine protein 09/10/2018 N2N/CCD Import Urine protein Trace Negative measurement by measurement by automated test automated test strip strip (mass/volume) Urine 09/10/2018 N2N/CCD Import Urine 0.2 0.2-1.0 urobilinogen urobilinogen measurement measurement (units/volume) by (units/volume) by t test strip Urine nitrite 09/10/2018 N2N/CCD Import Urine nitrite Negative Negative detection by detection by automated test automated test strip strip Urine leukocyte 09/10/2018 N2N/CCD Import Urine leukocyte Negative Negative esterase esterase detection by detection by automated te automated test strip Serum or plasma 06/18/2018 N2N/CCD Import Serum or plasma 33.3 30.0- 100.0 25-hydroxyvitamin 25-hydroxyvitamin D measurement (m D measurement (mass/volume) Serum or plasma 06/18/2018 N2N/CCD Import Serum or plasma 53 < 100 cholesterol in cholesterol in LDL measurement LDL measurement by by calculation (mass/volume) Serum or plasma 06/18/2018 N2N/CCD Import Serum or plasma 47 >40 cholesterol in cholesterol in HDL measurement HDL measurement (ma (mass/volume) Serum or plasma 06/18/2018 N2N/CCD Import Serum or plasma 141 <150 triglyceride triglyceride measurement measurement (mass/vol (mass/volume) Comprehensive 06/18/2018 [facility] Glucose 188 mg/dL High 74-106 30 Metabolic Panel [address] [place] [address] [phone] BUN 16 mg/dL Normal 7-18 Creatinine 1.1 mg/dL Normal 0.6-1.3 Glom Filtration Rate, Estimate 52 mL/min >60 If >60 mL/min >60 31 BUN/Creat 14.5 ratio Sodium 138 mmol/L Normal 136-145 Potassium 4.0 mmol/L Normal 3.5-5.1 Chloride 105 mmol/L Normal 98-107 Carbon Dioxide 26 mmol/L Normal 21-32 Anion Gap 7 mEq/L Low 8-16 Calcium 9.1 mg/dL Normal 8.5-10.1 Total Protein 7.8 g/dL Normal 6.4-8.2 Albumin 3.7 g/dL Normal 3.4-5.0 Globulin 4.1 g/dL Normal 1.9-4.3 Alb/Glob 0.9 ratio Bilirubin,Total 0.4 mg/dL Normal 0.2-1.0 Sgot/Ast 18 U/L Normal 15-37 SGPT/Alt 19 U/L Normal 12-78 Alkaline Phosphatase 61 U/L Normal 45-117 CBC W/Automated 06/18/2018 [facility] White Blood 5.0 K/uL Normal 3.1-10.[address] [place] [address] [phone] Red Blood Count 3.93 M/uL Normal 3.90-5.40 Hemoglobin 12.0 gm/dL Normal 11.6-15.8 Hematocrit 36.9 % Normal 36.0-46.1 Mean Cell Volume 93.9 fl Normal 80.9-99.0 Mean Corpuscular HGB 30.5 pg Normal 25.9-32.7 Mean Corpuscular HGB Conc 32.5 g/dL Normal 30.8-34.3 Platelet Count 215 K/uL Normal 155-360 Red Cell Distri Width SD 45.5 fl Normal 36-47 Red Cell Distri Width %CV 13.2 % Normal 11.7-14.4 Mean Platelet Volume 9.7 fl Normal 8.9-12.4 Neut% 60.9 % Normal 40.4-72.8 Lymph % 25.6 % Normal 20.0-42.0 Grimes % 9.1 % Normal 4.3-13.2 Eo% 2.4 % Normal 0.0-6.6 Bas% 1.4 % High 0.0-1.1 Immature Grans 0.6 % Normal 0.0-5.0 NRBC % 0.0 /100WBC < 10/ 100 WBC Neut# 3.07 K/uL Normal 1.8-7.0 Lymph # 1.29 K/uL Normal 1.0-4.0 Grimes # 0.46 K/uL Normal 0.3-0.9 Eos # 0.12 K/uL Normal 0.0-0.5 Baso # 0.07 K/uL Normal 0.0-0.1 Immature Grans Absolute 0.03 K/uL NRBC # 0.00 K/uL Glycohemoglobin 06/18/2018 [facility] Glycohemoglobin 6.8 % High 4.2-6.[address] (A1c) [place], [place] [address] [phone] eAG 148 mg/dL LDL Cholesterol Profile 06/18/2018 [facility] Cholesterol 128 mg/dL <[address] [place] [address] [phone] Triglycerides 141 mg/dL <150 34 HDL Cholesterol 47 mg/dL >40 35 LDL-Cholesterol 53 mg/dL < 100 36 Serum or plasma 06/18/2018 N2N/CCD Import Serum or plasma 128 <200 cholesterol cholesterol measurement measurement (mass/volu (mass/volume) Laboratory test 06/18/2018 [facility] Vitamin 33.3 30.0-100. [address] D,25-Hydroxy ng/mL 0 [place] [address] [phone] Comprehensive 03/31/2018 [facility] Glucose 224 High 74-106 38 Metabolic Panel [address] mg/[place] [address] [phone] BUN 23 mg/dL High 7-18 Creatinine 1.2 mg/dL Normal 0.6-1.3 Glom Filtration Rate, Estimate 47 mL/min >60 If 57 mL/min >60 39 BUN/Creat 19.1 ratio Sodium 141 mmol/L Normal 136-145 Potassium 4.3 mmol/L Normal 3.5-5.1 Chloride 106 mmol/L Normal 98-107 Carbon Dioxide 28 mmol/L Normal 21-32 Anion Gap 7 mEq/L Low 8-16 Calcium 8.2 mg/dL Low 8.5-10.1 Total Protein 6.5 g/dL Normal 6.4-8.2 Albumin 2.9 g/dL Low 3.4-5.0 Globulin 3.6 g/dL Normal 1.9-4.3 Alb/Glob 0.8 ratio Bilirubin,Total 0.5 mg/dL Normal 0.2-1.0 Sgot/Ast 13 U/L Low 15-37 40 SGPT/Alt 20 U/L Normal 12-78 Alkaline Phosphatase 52 U/L Normal 45-117 Laboratory test 03/31/2018 [facility] Lactic Acid 1.8 mmol/L Normal 0.4-1.9 finding [address] [place] [id number] [phone] CBC W/Automated 03/18/2018 [facility] White Blood 6.2 K/uL Normal 3.1-10.7 41 Diff [address] [place] [address] [phone] Red Blood Count 3.44 M/uL Low 3.90-5.40 Hemoglobin 10.1 gm/dL Low 11.6-15.8 Hematocrit 32.4 % Low 36.0-46.1 Mean Cell Volume 94.2 fl Normal 80.9-99.0 Mean Corpuscular HGB 29.4 pg Normal 25.9-32.7 Mean Corpuscular HGB Conc 31.2 g/dL Normal 30.8-34.3 Platelet Count 160 K/uL Normal 155-360 Red Cell Distri Width SD 46.9 fl Normal 36-47 Red Cell Distri Width %CV 14.1 % Normal 11.7-14.4 Mean Platelet Volume 10.8 fL Normal 8.9-12.4 Neut% 53.5 % Normal 40.4-72.8 Lymph % 25.5 % Normal 20.0-42.0 Grimes % 16.4 % High 4.3-13.2 Eo% 4.1 % Normal 0.0-6.6 Bas% 0.5 % Normal 0.0-1.1 Neut# 3.29 K/uL Normal 1.8-7.0 Lymph # 1.57 K/uL Normal 1.0-4.0 Grimes # 1.01 K/uL High 0.3-0.9 Eos # 0.25 K/uL Normal 0.0-0.5 Baso # 0.03 K/uL Normal 0.0-0.1 Basic Metabolic Panel 03/18/2018 [facility] Glucose 122 mg/dL High 74-106 [address] [place] [address] [phone] BUN 26 mg/dL High 7-18 Creatinine 1.2 mg/dL Normal 0.6-1.3 Glom Filtration Rate, Estimate 47 mL/min >60 If 57 mL/min >60 42 BUN/Creat 21.6 ratio Sodium 141 mmol/L Normal 136-145 Potassium 4.0 mmol/L Normal 3.5-5.1 Chloride 114 mmol/L High 98-107 Carbon Dioxide 24 mmol/L Normal 21-32 Anion Gap 3 mEq/L Low 8-16 Calcium 7.3 mg/dL Low 8.5-10.1 Laboratory test 03/18/2018 [facility] Magnesium 2.9 mg/dL High 1.8-2.4 finding [address] [place] [address] [phone] Laboratory test 03/17/2018 [facility] Magnesium 1.7 mg/dL Low 1.8-2.4 finding [address] [place] [address] [phone] Basic Metabolic 03/17/2018 [facility] Glucose 169 mg/dL High 74-106 Panel [address] [place] [address] [phone] BUN 38 mg/dL High 7-18 Creatinine 1.4 mg/dL High 0.6-1.3 Glom Filtration Rate, Estimate 39 mL/min >60 If 47 mL/min >60 43 BUN/Creat 27.1 ratio Sodium 146 mmol/L High 136-145 Potassium 4.1 mmol/L Normal 3.5-5.1 Chloride 115 mmol/L High 98-107 Carbon Dioxide 19 mmol/L Low 21-32 Anion Gap 12 mEq/L Normal 8-16 Calcium 7.7 mg/dL Low 8.5-10.1 CBC 03/17/2018 [facility] White Blood Count 5.5 K/uL 3.1-10.7 [address] [place] [address] [phone] Red Blood Count 3.96 M/uL Normal 3.90-5.40 Hemoglobin 11.8 gm/dL Normal 11.6-15.8 Hematocrit 36.0 % 36.0-46.1 Mean Cell Volume 90.9 fl Normal 80.9-99.0 Mean Corpuscular HGB 29.8 pg Normal 25.9-32.7 Mean Corpuscular HGB Conc 32.8 g/dL Normal 30.8-34.3 Platelet Count 206 K/uL Normal 155-360 Red Cell Distri Width %CV 14.0 % Normal 11.7-14.4 Mean Platelet Volume 10.6 fL Normal 8.9-12.4 Lactic Acid 03/17/2018 [facility] Lactic Acid 2.5 mmol/L Critical 0.4-1.[address] [place] [address] [phone] Lab Reflex >2.0 for Sepsis? N Glycohemoglobin 03/16/2018 [facility] Glycohemoglobin 6.3 % Normal 4.2-6.3 44 A1c [address] [facility] (A1c) [place] [address] [phone] eAG 134 mg/dL Laboratory 03/16/2018 [facility] Lactic 3.6 mmol/L Critical 0.4-1.9 test finding [address] Acid high [place], [place] [id number] [phone] Ua RFX Micro & 03/16/2018 [facility] Urine YELLOW Yellow 45 Culture II [address] Color [place], [place] [id number] [phone] Urine Clarity CLEAR Clear Urine Glucose - Dipstick NEGATIVE mg/dL Negative Urine Bilirubin - Dipstick NEGATIVE Negative Urine Ketone NEGATIVE mg/dL Negative Urine Specific [place] >=1.030 Normal 1.010-1.030 Urine Blood NEGATIVE Negative Urine PH 5.5 Low 6.5-7.5 Urine Protein - Dipstick TRACE mg/dL Negative Urine Urobilinogen - Dipstick 0.2 E.U./dL Normal 0.2-1.0 Urine Nitrite - Dipstick NEGATIVE Negative Urine Leuk Esterase NEGATIVE Negative Source: URINE, CLEAN CAT <SEE NOTE> 46 Lactic Acid 03/16/2018 [facility] Lactic Acid 4.1 mmol/L Critical 0.4-1.9 [address] [place] [address] [phone] Lab Reflex >2.0 for Sepsis? Y CBC W/Automated 03/11/2018 [facility] White 6.2 K/uL Normal 3.1-10.7 47 Diff [address] [facility] [place] [address] Count [phone] Red Blood Count 4.23 M/uL Normal 3.90-5.40 Hemoglobin 12.6 gm/dL Normal 11.6-15.8 Hematocrit 39.0 % Normal 36.0-46.1 Mean Cell Volume 92.2 fl Normal 80.9-99.0 Mean Corpuscular HGB 29.8 pg Normal 25.9-32.7 Mean Corpuscular HGB Conc 32.3 g/dL Normal 30.8-34.3 Platelet Count 222 K/uL Normal 155-360 Red Cell Distri Width SD 43.8 fl Normal 36-47 Red Cell Distri Width %CV 13.3 % Normal 11.7-14.4 Mean Platelet Volume 9.9 fL Normal 8.9-12.4 Neut% 49.4 % Normal 40.4-72.8 Lymph % 36.6 % Normal 20.0-42.0 Grimes % 9.8 % Normal 4.3-13.2 Eo% 3.1 % Normal 0.0-6.6 Bas% 1.1 % Normal 0.0-1.1 Neut# 3.06 K/uL Normal 1.8-7.0 Lymph # 2.27 K/uL Normal 1.0-4.0 Grimes # 0.61 K/uL Normal 0.3-0.9 Eos # 0.19 K/uL Normal 0.0-0.5 Baso # 0.07 K/uL Normal 0.0-0.1 Glycohemoglobin 03/11/2018 [facility] Glycohemoglobin 7.0 % High 4.2-6.3 [address] (A1c) [place] [address] [phone] eAG 154 mg/dL Comprehensive Metabolic 03/11/2018 [facility] Glucose 137 mg/dL High 74-[address] [place], [place] [address] [phone] BUN 25 mg/dL High 7-18 Creatinine 1.1 mg/dL Normal 0.6-1.3 Glom Filtration Rate, Estimate 52 mL/min >60 If >60 mL/min >60 49 BUN/Creat 22.7 ratio Sodium 140 mmol/L Normal 136-145 Potassium 4.2 mmol/L Normal 3.5-5.1 Chloride 107 mmol/L Normal 98-107 Carbon Dioxide 26 mmol/L Normal 21-32 Anion Gap 7 mEq/L Low 8-16 Calcium 8.9 mg/dL Normal 8.5-10.1 Total Protein 7.8 g/dL Normal 6.4-8.2 Albumin 3.6 g/dL Normal 3.4-5.0 Globulin 4.2 g/dL Normal 1.9-4.3 Alb/Glob 0.9 ratio Bilirubin,Total 0.6 mg/dL Normal 0.2-1.0 Sgot/Ast 17 U/L Normal 15-37 SGPT/Alt 27 U/L Normal 12-78 Alkaline Phosphatase 67 U/L Normal 45-117 Laboratory 03/11/2018 [facility] Vitamin 31.9 ng/mL 30.0-100.0 50 test finding [address] D,25-[place] [address] [phone] Urine Dipstick 11/03/2017 [facility] Ua Color yellow Yellow Ua Clarity clear Clear Ua Leuko neg Negative Ua Nitrite neg Negative Ua Urobilinogen 0.2 0.2 - 1.0 E.U./dL Ua Protein neg Negative Ua PH 5.0 Low 6.5-7.5 Ua Blood neg Negative Ua Specific [place] 1.010 1.010-1.030 Ua Ketones neg Negative Ua Bilirubin neg Negative Ua Glucose neg Negative Microalbumin,Random 11/03/2017 [facility] Microalbumin,Urine 6.8 < [address] mg/L 20.0 [place] [address] [phone] CBS W/Automated Diff 10/16/2017 [facility] White Blood Count 5.7 Normal 3.1-[address] K/uL 0.7 [place] [address] [phone] Red Blood Count 3.94 M/uL Normal 3.90-5.40 Hemoglobin 12.1 gm/dL Normal 11.6-15.8 Hematocrit 35.9 % Low 36.0-46.1 Mean Cell Volume 91.1 fl Normal 80.9-99.0 Mean Corpuscular HGB 30.7 pg Normal 25.9-32.7 Mean Corpuscular HGB Conc 33.7 g/dL Normal 30.8-34.3 Platelet Count 241 K/uL Normal 155-360 Red Cell Distri Width SD 42.9 fl Normal 3-47 Red Cell Distri Width %CV 13.3 % Normal 11.7-14.4 Mean Platelet Volume 10.7 fL Normal 8.9-12.4 Neut% 61.9 % Normal 40.4-72.8 Lymph % 25.1 % Normal 20.0-42.0 Grimes % 10.4 % Normal 4.3-13.2 Eo% 1.9 % Normal 0.0-6.6 Bas% 0.7 % Normal 0.0-1.1 Neut# 3.53 K/uL Normal 1.8-7.0 Lymph # 1.43 K/uL Normal 1.0-4.0 Grimes # 0.59 K/uL Normal 0.3-0.9 Eos # 0.11 K/uL Normal 0.0-0.5 Baso # 0.04 K/uL Normal 0.0-0.1 Laboratory test 10/16/2017 [facility] Vitamin 30.5 30.0-100.0 53 finding [address] D,25-Hydroxy ng/[place] [address] [phone] LDL Cholesterol 10/16/2017 [facility] Cholesterol 135 mg/dL <200 54 Profile [address] [place] [address] [phone] Triglycerides 206 mg/dL High <150 55 HDL Cholesterol 35 mg/dL Low >40 56 LDL-Cholesterol 59 mg/dL < 100 57 Glycohemoglobin 10/16/2017 [facility] Glycohemoglobin 6.8 % High 4.2-6.3 58 A1c [address] (A1c) [place] [address] [phone] eAG 148 mg/dL Comprehensive Metabolic 10/16/2017 [facility] Glucose 168 mg/dL High 74-106 Panel [address] [place] [address] [phone] BUN 27 mg/dL High 7-18 Creatinine 1.0 mg/dL Normal 0.6-1.3 Glom Filtration Rate, Estimate 58 mL/min >60 If >60 mL/min >60 59 BUN/Creat 27.0 ratio Sodium 143 mmol/L Normal 136-145 Potassium 4.4 mmol/L Normal 3.5-5.1 Chloride 112 mmol/L High 98-107 Carbon Dioxide 21 mmol/L Normal 21-32 Anion Gap 10 mEq/L Normal 8-16 Calcium 8.8 mg/dL Normal 8.5-10.1 Total Protein 7.2 g/dL Normal 6.4-8.2 Albumin 3.4 g/dL Normal 3.4-5.0 Globulin 3.8 g/dL Normal 1.9-4.3 Alb/Glob 0.9 ratio Bilirubin,Total 0.6 mg/dL Normal 0.2-1.0 Sgot/Ast 12 U/L Low 15-37 60 SGPT/Alt 23 U/L Normal 12-78 Alkaline Phosphatase 64 U/L Normal 45-117 Comprehensive 06/17/2017 [facility] Glucose 151 mg/dL High 74-106 61 Metabolic Panel [address] [place] [address] [phone] BUN 15 mg/dL Normal 7-18 Creatinine 1.0 mg/dL Normal 0.6-1.3 Glom Filtration Rate, Estimate 58 mL/min >60 If >60 mL/min >60 62 BUN/Creat 15.0 ratio Sodium 142 mmol/L Normal 136-145 Potassium 4.3 mmol/L Normal 3.5-5.1 Chloride 106 mmol/L Normal 98-107 Carbon Dioxide 29 mmol/L Normal 21-32 Anion Gap 7 mEq/L Low 8-16 Calcium 9.1 mg/dL Normal 8.5-10.1 Total Protein 7.1 g/dL Normal 6.4-8.2 Albumin 3.9 g/dL Normal 3.4-5.0 Globulin 3.2 g/dL Normal 1.9-4.3 Alb/Glob 1.2 ratio Bilirubin,Total 0.8 mg/dL Normal 0.2-1.0 Sgot/Ast 13 U/L Low 15-37 63 SGPT/Alt 16 U/L Normal 12-78 Alkaline Phosphatase 57 U/L Normal 45-117 Glycohemoglobin 06/17/2017 [facility] Glycohemoglobin 7.1 % High 4.2-6.3 [address] (A1c) [place], [place] [id number] [phone] eAG 157 mg/dL LDL Cholesterol Profile 06/17/2017 [facility] Cholesterol 129 mg/dL <[address] [place] [address] [phone] Triglycerides 197 mg/dL High <150 66 HDL Cholesterol 45 mg/dL >40 67 LDL-Cholesterol 45 mg/dL < 100 68 CBS W/Automated 06/17/2017 [facility] White Blood 6.4 K/uL Normal 3.1-10.[address] [place] [address] [phone] Red Blood Count 4.13 M/uL Normal 3.90-5.40 Hemoglobin 12.5 gm/dL Normal 11.6-15.8 Hematocrit 38.3 % Normal 36.0-46.1 Mean Cell Volume 92.7 fl Normal 80.9-99.0 Mean Corpuscular HGB 30.3 pg Normal 25.9-32.7 Mean Corpuscular HGB Conc 32.6 g/dL Normal 30.8-34.3 Platelet Count 204 K/uL Normal 155-360 Red Cell Distri Width SD 44.2 fl Normal 3-47 Red Cell Distri Width %CV 13.6 % Normal 11.7-14.4 Mean Platelet Volume 11.6 fL Normal 8.9-12.4 Neut% 59.1 % Normal 40.4-72.8 Lymph % 27.4 % Normal 20.0-42.0 Grimes % 10.6 % Normal 4.3-13.2 Eo% 2.3 % Normal 0.0-6.6 Bas% 0.6 % Normal 0.0-1.1 Neut# 3.79 K/uL Normal 1.8-7.0 Lymph # 1.76 K/uL Normal 1.0-4.0 Grimes # 0.68 K/uL Normal 0.3-0.9 Eos # 0.15 K/uL Normal 0.0-0.5 Baso # 0.04 K/uL Normal 0.0-0.1 Glycohemoglobin 01/13/2017 [facility] Glycohemoglobin 6.7 % High 4.2-6.3 69, A1c [address] (A1c) [address] [place] [address] [phone] eAG 146 mg/dL Comprehensive Metabolic 01/13/2017 [facility] Glucose 145 mg/dL High 74-[address] [place] [address] [phone] BUN 14 mg/dL Normal 7-18 Creatinine 0.9 mg/dL Normal 0.6-1.3 Glom Filtration Rate, Estimate >60 mL/min >60 If >60 mL/min >60 71 BUN/Creat 15.5 ratio Sodium 141 mmol/L Normal 136-145 Potassium 4.5 mmol/L Normal 3.5-5.1 Chloride 106 mmol/L Normal 98-107 Carbon Dioxide 29 mmol/L Normal 21-32 Anion Gap 6 mEq/L Low 8-16 Calcium 9.4 mg/dL Normal 8.5-10.1 Total Protein 7.1 g/dL Normal 6.4-8.2 Albumin 3.8 g/dL Normal 3.4-5.0 Globulin 3.3 g/dL Normal 1.9-4.3 Alb/Glob 1.2 ratio Bilirubin,Total 0.6 mg/dL Normal 0.2-1.0 Sgot/Ast 12 U/L Low 15-37 72 SGPT/Alt 20 U/L Normal 12-78 Alkaline Phosphatase 61 U/L Normal 45-117 CBS W/Automated 01/13/2017 [facility] White Blood 6.1 K/uL Normal 3.1-10.[address] [place] [address] [phone] Red Blood Count 4.13 M/uL Normal 3.90-5.40 Hemoglobin 12.7 gm/dL Normal 11.6-15.8 Hematocrit 38.9 % Normal 36.0-46.1 Mean Cell Volume 94.2 fl Normal 80.9-99.0 Mean Corpuscular HGB 30.8 pg Normal 25.9-32.7 Mean Corpuscular HGB Conc 32.6 g/dL Normal 30.8-34.3 Platelet Count 217 K/uL Normal 150-400 Red Cell Distri Width SD 43.7 fl Normal 3-47 Red Cell Distri Width %CV 13.1 % Normal 11.7-14.4 Mean Platelet Volume 11.0 fL Normal 8.9-12.4 Neut% 59.8 % Normal 40.4-72.8 Lymph % 25.0 % Normal 20.0-42.0 Grimes % 11.6 % Normal 4.3-13.2 Eo% 2.6 % Normal 0.0-6.6 Bas% 1.0 % Normal 0.0-1.1 Neut# 3.66 K/uL Normal 1.8-7.0 Lymph # 1.53 K/uL Normal 1.0-4.0 Grimes # 0.71 K/uL Normal 0.3-0.9 Eos # 0.16 K/uL Normal 0.0-0.5 Baso # 0.06 K/uL Normal 0.0-0.1 LDL Cholesterol Profile 01/13/2017 [facility] Cholesterol 158 mg/dL <[address] [place] [address] [phone] Triglycerides 233 mg/dL High <150 74 HDL Cholesterol 56 mg/dL >40 75 LDL-Cholesterol 55 mg/dL < 100 76 Laboratory test 01/13/2017 [facility] Vitamin 30.9 30.0-100.0 [address] D,25-Hydroxy ng/[place] [address] [phone] Glycohemoglobin 06/19/2016 [facility] Glycohemoglobin 6.6 % High 4.2-6.3 78, A1c [address] (A1c) 79 [place] [address] [phone] eAG 143 mg/dL CBS W/Automated 06/19/2016 [facility] White Blood 6.5 K/uL Normal 3.1-10.[address] [place] [address] [phone] Red Blood Count 3.99 M/uL Normal 3.90-5.40 Hemoglobin 12.0 gm/dL Normal 11.6-15.8 Hematocrit 37.0 % Normal 36.0-46.1 Mean Cell Volume 92.7 fl Normal 80.9-99.0 Mean Corpuscular HGB 30.1 pg Normal 25.9-32.7 Mean Corpuscular HGB Conc 32.4 g/dL Normal 30.8-34.3 Platelet Count 201 K/uL Normal 150-400 Red Cell Distri Width SD 45.4 fl Normal 3-47 Red Cell Distri Width %CV 13.5 % Normal 11.7-14.4 Mean Platelet Volume 11.1 fL Normal 8.9-12.4 Neut% 53.4 % Normal 40.4-72.8 Lymph % 30.1 % Normal 20.0-42.0 Grimes % 12.1 % Normal 4.3-13.2 Eo% 3.6 % Normal 0.0-6.6 Bas% 0.8 % Normal 0.0-1.1 Neut# 3.46 K/uL Normal 1.8-7.0 Lymph # 1.95 K/uL Normal 1.0-4.0 Grimes # 0.78 K/uL Normal 0.3-0.9 Eos # 0.23 K/uL Normal 0.0-0.5 Baso # 0.05 K/uL Normal 0.0-0.1 Comprehensive Metabolic 06/19/2016 [facility] Glucose 138 mg/dL High 74-[address] [place] [address] [phone] BUN 30 mg/dL High 7-18 Creatinine 1.3 mg/dL Normal 0.6-1.3 Glom Filtration Rate, Estimate 43 mL/min >60 If 52 mL/min >60 80 BUN/Creat 23.0 ratio Sodium 141 mmol/L Normal 136-145 Potassium 4.8 mmol/L Normal 3.5-5.1 Chloride 107 mmol/L Normal 98-107 Carbon Dioxide 26 mmol/L Normal 21-32 Anion Gap 8 mEq/L Normal 8-16 Calcium 8.4 mg/dL Low 8.5-10.1 Total Protein 7.0 g/dL Normal 6.4-8.2 Albumin 3.7 g/dL Normal 3.4-5.0 Globulin 3.3 g/dL Normal 1.9-4.3 Alb/Glob 1.1 ratio Bilirubin,Total 0.6 mg/dL Normal 0.2-1.0 Sgot/Ast 17 U/L Normal 15-37 SGPT/Alt 21 U/L Normal 12-78 Alkaline Phosphatase 56 U/L Normal 45-117 LDL Cholesterol Profile 06/19/2016 [facility] Cholesterol 142 mg/dL <[address] [place] [address] [phone] Triglycerides 188 mg/dL High <150 82 HDL Cholesterol 32 mg/dL Low >40 83 LDL-Cholesterol 72 mg/dL < 100 84 Laboratory test 06/19/2016 [facility] Vitamin 12.8 Low 30.0-100.0 [address] D,25-Hydroxy ng/[place] [address] [phone] Glycohemoglobin 02/16/2016 [facility] Glycohemoglobin 6.5 % High 4.2-6.3 86, A1c [address] (A1c) [address] [place] [address] [phone] eAG 140 mg/dL Normal Comprehensive 10/30/2015 [facility] Glucose 99 mg/dL Normal 74-106 88 Metabolic Panel [address] [place], [place] [id number] [phone] BUN 15 mg/dL Normal 7-18 Creatinine 0.9 mg/dL Normal 0.6-1.3 Glom Filtration Rate, Estimate >60 mL/min Normal >60 If >60 mL/min Normal >60 89 BUN/Creat 16.6 ratio Normal Sodium 138 mmol/L Normal 136-145 Potassium 4.7 mmol/L Normal 3.5-5.1 Chloride 106 mmol/L Normal 98-107 Carbon Dioxide 25 mmol/L Normal 21-32 Anion Gap 7 mEq/L Low 8-16 Calcium 8.9 mg/dL Normal 8.5-10.1 Total Protein 6.9 g/dL Normal 6.4-8.2 Albumin 3.7 g/dL Normal 3.4-5.0 Globulin 3.2 g/dL Normal 1.9-4.3 Alb/Glob 1.2 ratio Normal Bilirubin,Total 0.6 mg/dL Normal 0.2-1.0 Sgot/Ast 13 U/L Low 15-37 90 SGPT/Alt 23 U/L Normal 12-78 Alkaline Phosphatase 50 U/L Normal 45-117 @[facility] Pat Id: [id number] @[facility] Req #: [id number] Is Patient Fasting? Unknown LDL Cholesterol 10/30/2015 [facility] Cholesterol 131 mg/dL Normal <200 91 Profile [address] [place] [address] [phone] Triglycerides 170 mg/dL High <150 92 HDL Cholesterol 38 mg/dL Low >40 93 LDL-Cholesterol 59 mg/dL Normal < 100 94 @[facility] Pat Id: [id number] @[facility] Req #: [id number] Is Patient Fasting? Unknown CBS W/Automated 10/30/2015 [facility] White Blood 7.0 K/uL Normal 3.1-10.7 Diff [address] [place] [address] [phone] Red Blood Count 3.95 M/uL Normal 3.90-5.40 Hemoglobin 12.0 gm/dL Normal 11.6-15.8 Hematocrit 36.7 % Normal 36.0-46.1 Mean Cell Volume 92.9 fl Normal 80.9-99.0 Mean Corpuscular HGB 30.4 pg Normal 25.9-32.7 Mean Corpuscular HGB Conc 32.7 g/dL Normal 30.8-34.3 Platelet Count 205 K/uL Normal 155-360 Red Cell Distri Width SD 42.5 fl Normal 3-47 Red Cell Distri Width %CV 13.0 % Normal 11.7-14.4 Mean Platelet Volume 11.2 fL Normal 8.9-12.4 Neut% 58.7 % Normal 40.4-72.8 Lymph % 29.4 % Normal 17.0-46.1 Grimes % 9.7 % Normal 4.3-13.2 Eo% 1.3 % Normal 0.0-6.6 Bas% 0.9 % Normal 0.0-1.1 Neut# 4.14 K/uL Normal 1.8-7.0 Lymph # 2.07 K/uL Normal 1.8-7.0 Grimes # 0.68 K/uL Normal 0.3-0.9 Eos # 0.09 K/uL Normal 0.0-0.5 Baso # 0.06 K/uL Normal 0.0-0.1 @[facility] Pat Id: [id number] @[facility] Req #: [id number] Slide Review 10/30/2015 [facility] Slide Review . Normal [address] [place] [address] [phone] @[facility] Pat Id: [id number] @[facility] Req #: [id number] Vitamin 10/30/2015 [facility] Vitamin 22.2 Low 30.0-100.0 96, D,25-Hydroxy [address] D,25-Hydroxy ng/mL 97 [place] [address] [phone] @[facility] Pat Id: [id number] @[facility] Req #: [id number] Glycohemoglobin 10/30/2015 [facility] Glycohemoglobin 6.8 % High 4.2-6.3 98, A1c [address] (A1c) 99 [place] [address] [phone] eAG 148 mg/dL Normal @[facility] Pat Id: [id number] @[facility] Req #: [id number] Microalbumin,Random 10/25/2015 [facility] Microalbumin,Urine 6.5 Normal < [address] mg/L 20.0 [place] [address] [phone] @[facility] Pat Id: [id number] @[facility] Re #: [id number] Laboratory test 04/28/2012 [facility] Colonic See Note [address] Mucosa/[place] [address] Biopsy [phone] Basic Metabolic 07/20/2009 [facility] Glucose 183 mg/dL High 76-[address] [place] [address] [phone] BUN 14 mg/dL 5-23 Creatinine 1.1 mg/dL 0.5-1.4 Glom Filtration Rate, Estimate 53 mL/min >60 If >60 mL/min >60 102 BUN/Creat 12.7 Sodium 139 mEq/L 136-145 Potassium 4.4 mEq/L 3.5-5.1 Chloride 105 mEq/L 98-107 Carbon Dioxide 31 mEq/L 21-32 Anion Gap 7 mEq/L Low 8-16 Calcium 9.0 mg/dL 8.5-10.1 CBC 07/20/2009 [facility] White Blood Count 5.1 K/uL 3.1-10.[address] [place] [address] [phone] Red Blood Count 4.15 M/uL 3.90-5.40 Hemoglobin 12.9 gm/dL 11.6-15.8 Hematocrit 39.6 % 36.0-46.1 Mean Cell Volume 95.4 fl 80.9-99.0 Mean Corpuscular HGB 31.1 pg 25.9-32.7 Mean Corpuscular HGB Conc 32.6 g/dL 30.8-34.3 Platelet Count 206 K/uL 155-360 Red Cell Distri Width %CV 12.4 % 11.7-14.4 Mean Platelet Volume 10.4 fL 8.9-12.4 Protime 07/20/2009 [facility] Protime 13.8 seconds 11.7-15.[address] [place] [address] [phone] Inr 1.0 0.8-1.2 103 Laboratory test 07/20/2009 [facility] Act Partial 31.0 seconds 23.4-37.4 [address] [place] [address] [phone] Urine Screen See Note 105 Urinalysis With 07/20/2009 [facility] Urine Color YELLOW Yellow Microscopic [address] [place] [id number] [phone] Urine Clarity CLEAR Clear Urine Glucose - Dipstick NEGATIVE mg/dL Negative Urine Bilirubin - Dipstick NEGATIVE Negative Urine Ketone NEGATIVE mg/dL Negative Urine Specific [place] 1.010 1.010-1.030 Urine Blood NEGATIVE Negative Urine PH 6.0 Low 6.5-7.5 Urine Protein - Dipstick NEGATIVE mg/dL Negative Urine Urobilinogen - Dipstick 0.2 E.U./dL 0.2-1.0 Urine Nitrite - Dipstick NEGATIVE Negative Urine Leuk Esterase TRACE High Negative Urine RBC 0-2 rbc/hpf 0-7 Urine WBC 0-2 wbc/hpf 0-7 Urine Epithelial Cells FEW NONESEEN Urine Amorph Sediment SMALL Negative 1 COLITIS 2 Note: Persistent reduction for 3 months or more in an eGFR <60 mL/min/1.73 m2 defines CKD. Patients with eGFR values >/=60 mL/min/1.73 m2 may also have CKD if evidence of persistent proteinuria is present. The original MDRD equation for estimated GFR is not valid for patients less than 18 years of age. Additional information may be found at [email or web address]. 3 Tests: magnesium Instructions: 4 Note: Persistent reduction for 3 months or more in an eGFR <60 mL/min/1.73 m2 defines CKD. Patients with eGFR values >/=60 mL/min/1.73 m2 may also have CKD if evidence of persistent proteinuria is present. The original MDRD equation for estimated GFR is not valid for patients less than 18 years of age. Additional information may be found at [email or web address]. 5 ?BOWEL PROBLEMS 6 Tests: CRP, ESR, MAGNESIUM Instructions: 7 CRP, ESR, MAGNESIUM 8 This result was obtained with an ESR method that is not based on the standard Westergren Method. When comparing results obtained from the traditional Westergren ESR and this method it is important to refer to the reference range for each method. Method: Capillary Photometry 9 E11.9 N17.9 E78.5 10 Note: Persistent reduction for 3 months or more in an eGFR <60 mL/min/1.73 m2 defines CKD. Patients with eGFR values >/=60 mL/min/1.73 m2 may also have CKD if evidence of persistent proteinuria is present. The original MDRD equation for estimated GFR is not valid for patients less than 18 years of age. Additional information may be found at [email or web address]. 11 Reference Guidelines*: Desirable: ........... < 200 mg/dL Borderline High: ..... 200-239 mg/dL High: ................ >=240 mg/dL * The National Cholesterol Education Program (NCEP) 12 Reference Guidelines*: Normal: ............. < 150 mg/dL Borderline High: .... 150-199 mg/dL High: ............... 200-499 mg/dL Very High: .......... > 500 mg/dL * Source: National Cholesterol Education Program (NCEP) 13 Reference Guidelines*: Low HDL: ..... < 40 mg/dL Normal: ..... 40-60 mg/dL Desirable: ... > 60 mg/dL *The National Cholesterol Education Program(NCEP) 14 Reference Guidelines*: Optimal:........... <100 mg/dL Near Optimal....... 100-129 mg/dL Borderline High.... 130-159 mg/dL High............... 160-189 mg/dL Very High.......... >=190 mg/dL * Source: National Cholesterol Education Program (NCEP) 15 Elevated levels of HbA1c suggest the need for more aggressive treatment of glycemia. The [place] [employer] recommends that a primary goal of therapy should be a HbA1c of <7% and that physicians should re-evaluate the treatment regimen in patients with HbA1c values consistently >8%. 16 SBO VS ILEUS VS ENTERITIS 17 Note: Persistent reduction for 3 months or more in an eGFR <60 mL/min/1.73 m2 defines CKD. Patients with eGFR values >/=60 mL/min/1.73 m2 may also have CKD if evidence of persistent proteinuria is present. The original MDRD equation for estimated GFR is not valid for patients less than 18 years of age. Additional information may be found at [email or web address]. 18 Note: Persistent reduction for 3 months or more in an eGFR <60 mL/min/1.73 m2 defines CKD. Patients with eGFR values >/=60 mL/min/1.73 m2 may also have CKD if evidence of persistent proteinuria is present. The original MDRD equation for estimated GFR is not valid for patients less than 18 years of age. Additional information may be found at [email or web address]. 19 Values below the stated reference ranges of AST and ALT can be seen in normal populations. Clinical correlation is suggested. 20 Note: Persistent reduction for 3 months or more in an eGFR <60 mL/min/1.73 m2 defines CKD. Patients with eGFR values >/=60 mL/min/1.73 m2 may also have CKD if evidence of persistent proteinuria is present. The original MDRD equation for estimated GFR is not valid for patients less than 18 years of age. Additional information may be found at [email or web address]. 21 Values below the stated reference ranges of AST and ALT can be seen in normal populations. Clinical correlation is suggested. 22 Elevated levels of HbA1c suggest the need for more aggressive treatment of glycemia. The [place] [employer] recommends that a primary goal of therapy should be a HbA1c of <7% and that physicians should re-evaluate the treatment regimen in patients with HbA1c values consistently >8%. 23 POSSIBLE BOWL OBSTRUCTION, STOMACH PAIN 24 0.0 - 0.045 ng/mL: Normal 0.046 - 0.5 ng/mL: Suggestive 0.6 - 1.5 ng/mL: Consistent 25 Note: Persistent reduction for 3 months or more in an eGFR <60 mL/min/1.73 m2 defines CKD. Patients with eGFR values >/=60 mL/min/1.73 m2 may also have CKD if evidence of persistent proteinuria is present. The original MDRD equation for estimated GFR is not valid for patients less than 18 years of age. Additional information may be found at [email or web address]. 26 SBO VS ILEUS VS ENTERITIS 27 Tests: magnesium crp phosphorous Instructions: 28 magnesium crp phosphorous 29 URINE, CLEAN CATCH 30 E11.9 31 Note: Persistent reduction for 3 months or more in an eGFR <60 mL/min/1.73 m2 defines CKD. Patients with eGFR values >/=60 mL/min/1.73 m2 may also have CKD if evidence of persistent proteinuria is present. The original MDRD equation for estimated GFR is not valid for patients less than 18 years of age. Additional information may be found at [email or web address]. 32 Elevated levels of HbA1c suggest the need for more aggressive treatment of glycemia. The [place] [employer] recommends that a primary goal of therapy should be a HbA1c of <7% and that physicians should re-evaluate the treatment regimen in patients with HbA1c values consistently >8%. 33 Reference Guidelines*: Desirable: ........... < 200 mg/dL Borderline High: ..... 200-239 mg/dL High: ................ >=240 mg/dL * The National Cholesterol Education Program (NCEP) 34 Reference Guidelines*: Normal: ............. < 150 mg/dL Borderline High: .... 150-199 mg/dL High: ............... 200-499 mg/dL Very High: .......... > 500 mg/dL * Source: National Cholesterol Education Program (NCEP) 35 Reference Guidelines*: Low HDL: ..... < 40 mg/dL Normal: ..... 40-60 mg/dL Desirable: ... > 60 mg/dL *The National Cholesterol Education Program(NCEP) 36 Reference Guidelines*: Optimal:........... <100 mg/dL Near Optimal....... 100-129 mg/dL Borderline High.... 130-159 mg/dL High............... 160-189 mg/dL Very High.......... >=190 mg/dL * Source: National Cholesterol Education Program (NCEP) 37 Vitamin D deficiency has been defined by the [place] [employer] and an Endocrine Society practice guideline as a level of serum 25-OH vitamin D less than 20 ng/mL (1,2). The Endocrine Society went on to further define vitamin D insufficiency as a level between 21 and 29 ng/mL (2). 1. IOM ([place] [employer]). 2010. Dietary reference intakes for calcium and D. [place]: The National Academies Press. 2. Crow MF, [place], [place] OKEEFE, et al. Evaluation, treatment, and prevention of vitamin D deficiency: an Endocrine Society clinical practice guideline. JCEM. 2010; 96(7):1911-30. Performed at: RN - [facility] [address] [id number] Tight Barrel Inspector: Mag Morrsi MD, Phone: [phone] 38 N17.9 E87.2 39 Note: Persistent reduction for 3 months or more in an eGFR <60 mL/min/1.73 m2 defines CKD. Patients with eGFR values >/=60 mL/min/1.73 m2 may also have CKD if evidence of persistent proteinuria is present. The original MDRD equation for estimated GFR is not valid for patients less than 18 years of age. Additional information may be found at [email or web address]. 40 Values below the stated reference ranges of AST and ALT can be seen in normal populations. Clinical correlation is suggested. 41 SMALL BOWEL OBSTRUCTION 42 Note: Persistent reduction for 3 months or more in an eGFR <60 mL/min/1.73 m2 defines CKD. Patients with eGFR values >/=60 mL/min/1.73 m2 may also have CKD if evidence of persistent proteinuria is present. The original MDRD equation for estimated GFR is not valid for patients less than 18 years of age. Additional information may be found at [email or web address]. 43 Note: Persistent reduction for 3 months or more in an eGFR <60 mL/min/1.73 m2 defines CKD. Patients with eGFR values >/=60 mL/min/1.73 m2 may also have CKD if evidence of persistent proteinuria is present. The original MDRD equation for estimated GFR is not valid for patients less than 18 years of age. Additional information may be found at [email or web address]. 44 Elevated levels of HbA1c suggest the need for more aggressive treatment of glycemia. The [place] [employer] recommends that a primary goal of therapy should be a HbA1c of <7% and that physicians should re-evaluate the treatment regimen in patients with HbA1c values consistently >8%. 45 STABBING PAIN IN STOMACH, NAUSEA 46 URINE, CLEAN CATCH 47 Z02.9 NO ORDER HERE 48 Elevated levels of HbA1c suggest the need for more aggressive treatment of glycemia. The [place] [employer] recommends that a primary goal of therapy should be a HbA1c of <7% and that physicians should re-evaluate the treatment regimen in patients with HbA1c values consistently >8%. 49 Note: Persistent reduction for 3 months or more in an eGFR <60 mL/min/1.73 m2 defines CKD. Patients with eGFR values >/=60 mL/min/1.73 m2 may also have CKD if evidence of persistent proteinuria is present. The original MDRD equation for estimated GFR is not valid for patients less than 18 years of age. Additional information may be found at [email or web address]. 50 Vitamin D deficiency has been defined by the [place] [employer] and an Endocrine Society practice guideline as a level of serum 25-OH vitamin D less than 20 ng/mL (1,2). The Endocrine Society went on to further define vitamin D insufficiency as a level between 21 and 29 ng/mL (2). 1. IOM ([place] [employer]). 2010. Dietary reference intakes for calcium and D. [place]: The National Academies Press. 2. [place] Franks, [place] OKEEFE, et al. Evaluation, treatment, and prevention of vitamin D deficiency: an Endocrine Society clinical practice guideline. JCEM. 2010; 96(7):1911-30. Performed at: RN - [facility] [address] [id number] Tight Barrel Inspector: Mag Morris MD, Phone: [phone] 51 E11.9 52 E11.9 E55.9 K52.0 E11.9 E55.9 K52.0 E78.5 53 Vitamin D deficiency has been defined by the [place] [employer] and an Endocrine Society practice guideline as a level of serum 25-OH vitamin D less than 20 ng/mL (1,2). The Endocrine Society went on to further define vitamin D insufficiency as a level between 21 and 29 ng/mL (2). 1. IOM ([place] [employer]). 2010. Dietary reference intakes for calcium and D. [place]: The National Academies Press. 2. [place] Franks, Salvador OKEEFE, et al. Evaluation, treatment, and prevention of vitamin D deficiency: an Endocrine Society clinical practice guideline. JCEM. 2010; 96(7):1911-30. Performed at: RN - [facility] [address] [id number] Tight Barrel Inspector: Mag Morris MD, Phone: [phone] 54 Reference Guidelines*: Desirable: ........... < 200 mg/dL Borderline High: ..... 200-239 mg/dL High: ................ >=240 mg/dL * The National Cholesterol Education Program (NCEP) 55 Reference Guidelines*: Normal: ............. < 150 mg/dL Borderline High: .... 150-199 mg/dL High: ............... 200-499 mg/dL Very High: .......... > 500 mg/dL * Source: National Cholesterol Education Program (NCEP) 56 Reference Guidelines*: Low HDL: ..... < 40 mg/dL Normal: ..... 40-60 mg/dL Desirable: ... > 60 mg/dL *The National Cholesterol Education Program(NCEP) 57 Reference Guidelines*: Optimal:........... <100 mg/dL Near Optimal....... 100-129 mg/dL Borderline High.... 130-159 mg/dL High............... 160-189 mg/dL Very High.......... >=190 mg/dL * Source: National Cholesterol Education Program (NCEP) 58 Elevated levels of HbA1c suggest the need for more aggressive treatment of glycemia. The [place] [employer] recommends that a primary goal of therapy should be a HbA1c of <7% and that physicians should re-evaluate the treatment regimen in patients with HbA1c values consistently >8%. 59 Note: Persistent reduction for 3 months or more in an eGFR <60 mL/min/1.73 m2 defines CKD. Patients with eGFR values >/=60 mL/min/1.73 m2 may also have CKD if evidence of persistent proteinuria is present. The original MDRD equation for estimated GFR is not valid for patients less than 18 years of age. Additional information may be found at [email or web address]. 60 Values below the stated reference ranges of AST and ALT can be seen in normal populations. Clinical correlation is suggested. 61 E11.9 E78.5 62 Note: Persistent reduction for 3 months or more in an eGFR <60 mL/min/1.73 m2 defines CKD. Patients with eGFR values >/=60 mL/min/1.73 m2 may also have CKD if evidence of persistent proteinuria is present. The original MDRD equation for estimated GFR is not valid for patients less than 18 years of age. Additional information may be found at www.kdoqi.org. 63 Values below the stated reference ranges of AST and ALT can be seen in normal populations. Clinical correlation is suggested. 64 Elevated levels of HbA1c suggest the need for more aggressive treatment of glycemia. The [place] [employer] recommends that a primary goal of therapy should be a HbA1c of <7% and that physicians should re-evaluate the treatment regimen in patients with HbA1c values consistently >8%. 65 Reference Guidelines*: Desirable: ........... < 200 mg/dL Borderline High: ..... 200-239 mg/dL High: ................ >=240 mg/dL * The National Cholesterol Education Program (NCEP) 66 Reference Guidelines*: Normal: ............. < 150 mg/dL Borderline High: .... 150-199 mg/dL High: ............... 200-499 mg/dL Very High: .......... > 500 mg/dL * Source: National Cholesterol Education Program (NCEP) 67 Reference Guidelines*: Low HDL: ..... < 40 mg/dL Normal: ..... 40-60 mg/dL Desirable: ... > 60 mg/dL *The National Cholesterol Education Program(NCEP) 68 Reference Guidelines*: Optimal:........... <100 mg/dL Near Optimal....... 100-129 mg/dL Borderline High.... 130-159 mg/dL High............... 160-189 mg/dL Very High.......... >=190 mg/dL * Source: National Cholesterol Education Program (NCEP) 69 E11.9 I10 E78.5 E55.9 70 Elevated levels of HbA1c suggest the need for more aggressive treatment of glycemia. The [place] [employer] recommends that a primary goal of therapy should be a HbA1c of <7% and that physicians should re-evaluate the treatment regimen in patients with HbA1c values consistently >8%. 71 Note: Persistent reduction for 3 months or more in an eGFR <60 mL/min/1.73 m2 defines CKD. Patients with eGFR values >/=60 mL/min/1.73 m2 may also have CKD if evidence of persistent proteinuria is present. The original MDRD equation for estimated GFR is not valid for patients less than 18 years of age. Additional information may be found at www.kdoqi.org. 72 Values below the stated reference ranges of AST and ALT can be seen in normal populations. Clinical correlation is suggested. 73 Reference Guidelines*: Desirable: ........... < 200 mg/dL Borderline High: ..... 200-239 mg/dL High: ................ >=240 mg/dL * The National Cholesterol Education Program (NCEP) 74 Reference Guidelines*: Normal: ............. < 150 mg/dL Borderline High: .... 150-199 mg/dL High: ............... 200-499 mg/dL Very High: .......... > 500 mg/dL * Source: National Cholesterol Education Program (NCEP) 75 Reference Guidelines*: Low HDL: ..... < 40 mg/dL Normal: ..... 40-60 mg/dL Desirable: ... > 60 mg/dL *The National Cholesterol Education Program(NCEP) 76 Reference Guidelines*: Optimal:........... <100 mg/dL Near Optimal....... 100-129 mg/dL Borderline High.... 130-159 mg/dL High............... 160-189 mg/dL Very High.......... >=190 mg/dL * Source: National Cholesterol Education Program (NCEP) 77 Vitamin D deficiency has been defined by the [place] [employer] and an Endocrine Society practice guideline as a level of serum 25-OH vitamin D less than 20 ng/mL (1,2). The Endocrine Society went on to further define vitamin D insufficiency as a level between 21 and 29 ng/mL (2). 1. IOM ([place] [employer]). 2010. Dietary reference intakes for calcium and D. [place]: The National Academies Press. 2. Crow MF, [place] CHIN, Salvador OKEEFE, et al. Evaluation, treatment, and prevention of vitamin D deficiency: an Endocrine Society clinical practice guideline. JCEM. 2010; 96(7):1911-30. Performed at: RN - [facility] [address] [id number] Tight Barrel Inspector: Mag Morris MD, Phone: [phone] 78 E11.9 I10 E78.5 M81.8 79 Elevated levels of HbA1c suggest the need for more aggressive treatment of glycemia. The [place] [employer] recommends that a primary goal of therapy should be a HbA1c of <7% and that physicians should re-evaluate the treatment regimen in patients with HbA1c values consistently >8%. 80 Note: Persistent reduction for 3 months or more in an eGFR <60 mL/min/1.73 m2 defines CKD. Patients with eGFR values >/=60 mL/min/1.73 m2 may also have CKD if evidence of persistent proteinuria is present. The original MDRD equation for estimated GFR is not valid for patients less than 18 years of age. Additional information may be found at www.kdoqi.org. 81 Reference Guidelines*: Desirable: ........... < 200 mg/dL Borderline High: ..... 200-239 mg/dL High: ................ >=240 mg/dL * The National Cholesterol Education Program (NCEP) 82 Reference Guidelines*: Normal: ............. < 150 mg/dL Borderline High: .... 150-199 mg/dL High: ............... 200-499 mg/dL Very High: .......... > 500 mg/dL * Source: National Cholesterol Education Program (NCEP) 83 Reference Guidelines*: Low HDL: ..... < 40 mg/dL Normal: ..... 40-60 mg/dL Desirable: ... > 60 mg/dL *The National Cholesterol Education Program(NCEP) 84 Reference Guidelines*: Optimal:........... <100 mg/dL Near Optimal....... 100-129 mg/dL Borderline High.... 130-159 mg/dL High............... 160-189 mg/dL Very High.......... >=190 mg/dL * Source: National Cholesterol Education Program (NCEP) 85 Vitamin D deficiency has been defined by the [place] [employer] and an Endocrine Society practice guideline as a level of serum 25-OH vitamin D less than 20 ng/mL (1,2). The Endocrine Society went on to further define vitamin D insufficiency as a level between 21 and 29 ng/mL (2). 1. IOM ([place] [employer]). 2010. Dietary reference intakes for calcium and D. [place]: The National Academies Press. 2. Crow MF, [place], Hardeep-Lucian OKEEFE, et al. Evaluation, treatment, and prevention of vitamin D deficiency: an Endocrine Society clinical practice guideline. JCEM. 2010; 96(7):1911-30. Performed at: RN - [facility] [address] [id number] Tight Barrel Inspector: Mag Morris MD, Phone: [phone] 86 E11.9 87 Elevated levels of HbA1c suggest the need for more aggressive treatment of glycemia. The [place] [employer] recommends that a primary goal of therapy should be a HbA1c of <7% and that physicians should re-evaluate the treatment regimen in patients with HbA1c values consistently >8%. 88 E11.9 I10 E78.5 E78.5 J44.9 M81.8 89 Note: Persistent reduction for 3 months or more in an eGFR <60 mL/min/1.73 m2 defines CKD. Patients with eGFR values >/=60 mL/min/1.73 m2 may also have CKD if evidence of persistent proteinuria is present. The original MDRD equation for estimated GFR is not valid for patients less than 18 years of age. Additional information may be found at www.kdoqi.org. 90 Values below the stated reference ranges of AST and ALT can be seen in normal populations. Clinical correlation is suggested. 91 Reference Guidelines*: Desirable: ........... < 200 mg/dL Borderline High: ..... 200-239 mg/dL High: ................ >=240 mg/dL * The National Cholesterol Education Program (NCEP) 92 Reference Guidelines*: Normal: ............. < 150 mg/dL Borderline High: .... 150-199 mg/dL High: ............... 200-499 mg/dL Very High: .......... > 500 mg/dL * Source: National Cholesterol Education Program (NCEP) 93 Reference Guidelines*: Low HDL: ..... < 40 mg/dL Normal: ..... 40-60 mg/dL Desirable: ... > 60 mg/dL *The National Cholesterol Education Program(NCEP) 94 Reference Guidelines*: Optimal:........... <100 mg/dL Near Optimal....... 100-129 mg/dL Borderline High.... 130-159 mg/dL High............... 160-189 mg/dL Very High.......... >=190 mg/dL * Source: National Cholesterol Education Program (NCEP) 95 Instrument flagged sample for slide review. Less than 10% Bands seen, no other immature WBC's seen. RBC morphology essentially normal. Platelet estimate=NOTMAL 96 E11.9 E13.9 J44.9 I10 E78.5 M81.8 97 Vitamin D deficiency has been defined by the [place] [employer] and an Endocrine Society practice guideline as a level of serum 25-OH vitamin D less than 20 ng/mL (1,2). The Endocrine Society went on to further define vitamin D insufficiency as a level between 21 and 29 ng/mL (2). 1. IOM ([place] [employer]). 2010. Dietary reference intakes for calcium and D. [place]: The National Academies Press. 2. Crow MF, [place], Salvador OKEEFE, et al. Evaluation, treatment, and prevention of vitamin D deficiency: an Endocrine Society clinical practice guideline. JCEM. 2010; 96(7):1911-30. Performed at: RN - [facility] [address] [id number] Tight Barrel Inspector: Mag Morris MD, Phone: [phone] 98 E11.9 I10 E78.5 E78.5 J44.9 M81.8 99 Elevated levels of HbA1c suggest the need for more aggressive treatment of glycemia. The [place] [employer] recommends that a primary goal of therapy should be a HbA1c of <7% and that physicians should re-evaluate the treatment regimen in patients with HbA1c values consistently >8%. 100 E11.9 101 OPERATION/PROCEDURE Colonoscopy DIAGNOSIS: PART 1: "COLON AT 50 CM., BIOPSY": COLITIS, MODERATE, WITH CRYPT ABSCESSES, (CHRONIC ACTIVE). PART 2: "COLON AT 80 CM., BIOPSY": COLITIS, MODERATE, WITH CRYPT ABSCESSES, (CHRONIC ACTIVE). MARICRUZ/parker GROSS Part 1; "MUCOSA AT 50 CM.". The specimen is received in an appropriately labeled container. This contains three rounded clement colored pieces of soft tissue measuring up to 0.2 cm.; filtered and submitted in toto within a single cassette. Part 2; "MUCOSA AT 80 CM.". The specimen is received in an appropriately labeled container. This contains one rounded clement colored piece of soft tissue measuring up to 0.3 cm.; filtered and submitted in toto within a single cassette. MARICRUZ/parker MICROSCOPIC Parts 1,2: Sections reveal markedly inflamed colonic mucosa with hemorrhage , and confluent acute and chronic inflammation. Inflammatory cells surround and infiltrate individual glands. The glands are shortened, angularly distorted, with markedly increased crypt mitotic activity. Crypt abscesses are seen. PRE OPERATIVE DIAGNOSIS Rectal bleeding REVIEW CODE CODE: I ABIGAIL Salazar MD 1425 102 Note: Persistent reduction for 3 months or more in an eGFR <60 mL/min/1.73 m2 defines CKD. Patients with eGFR values >/=60 mL/min/1.73 m2 may also have CKD if evidence of persistent proteinuria is present. The original MDRD equation for estimated GFR is not valid for patients less than 18 years of age. Additional information may be found at www.kdoqi.org. 103 THERAPEUTIC INR RANGE: 2.0 - 3.0 DVT, Pulmonary embolus, prophylaxis against venous thrombosis or systemic embolization in high risk patients. 2.5 - 3.5 Mechanical heart valves 104 IS PATIENT ON HEPARIN PROTOCOL ? N IS PATIENT ON ANTICOAGULANTS? UNKNOWN QUERY: Anticoagulant Therapy? QUERY: Date of Last Dose: QUERY: Time of Last Dose: 105 07/20/09 JEFFREY Deleted by Reflex Group UACOM Procedures Date Code Description Status 07/01/2018 [id number] Mammogram Completed 11/20/2017 66958 Bronchospasm Provocation Evaluation Multi Spirometric Completed Determinati 11/20/2017 66791 Spirometry Completed 06/10/2017 [id number] Mammogram Completed 06/06/2016 [id number] Mammogram Completed 11/22/2015 [id number] Mammogram Completed 10/25/2015 74702 EKG-Tracing And Report Completed 05/18/2015 [id number] Mammogram Completed 05/09/2015 [id number] Bone Mineral Density Test Completed 05/13/2014 [id number] Mammogram Completed 01/15/2013 [id number] Mammogram Completed 04/28/2012 [id number] Colonoscopy Completed 04/28/2012 62835 Colonoscopy With Biopsy Completed 06/04/2011 02007 Anesthesia, Lens Surgery Completed 05/21/2011 57821 Anesthesia, Lens Surgery Completed 05/14/2011 64435 Echocardiogram Complete Completed 01/18/2010 51338 Radiology, Elbow: Two Views Completed 09/15/2009 31725 Radiology, Elbow: Two Views Completed 08/09/2009 62364 Radiology, Elbow: Two Views Completed 08/03/2009 73284 Radiology, Elbow Complete Completed 07/24/2009 53463 Open treatment FX radial head/neck w/wo inter fix or Completed radial hd ex 07/24/2009 59327 Open treatment FX radial head/neck w/wo inter fix or Completed radial hd ex 07/21/2009 85999 Stress Test Interpre And Report Only Completed 07/21/2009 07077 Stress Test Physician Super Only Completed 07/20/2009 12646 EKG Interpretation And Report Only Completed 04/07/2007 [id number] Colonoscopy Completed Encounters Type Date Location Provider Dx Diagnosis Office Visit 09/21/2018 [facility], R10.84 Generalized 11:30a Office MS Tiffany, abdominal pain EVENING OR NIGHT NURSE SUPERVISOR-C, CNM E11.9 Type 2 diabetes mellitus without complications N17.9 Acute kidney failure, unspecified E78.5 Hyperlipidemia, unspecified E87.6 Hypokalemia Office Visit 06/23/2018 10:00a [facility], E11.9 Type 2 diabetes Office MS Tiffany, mellitus without EVENING OR NIGHT NURSE SUPERVISOR-C, CNM complications K56.690 Other partial intestinal obstruction N17.9 Acute kidney failure, unspecified R10.84 Generalized abdominal pain Z12.31 Encntr screen mammogram for malignant neoplasm of breast E78.5 Hyperlipidemia, unspecified Z91.030 Bee allergy status Office Visit 03/23/2018 1:30p [facility], E11.9 Type 2 diabetes Office MS Tiffany, mellitus without EVENING OR NIGHT NURSE SUPERVISOR-C, CNM complications K56.690 Other partial intestinal obstruction N17.9 Acute kidney failure, unspecified Office Visit 03/09/2018 1:00p [facility] J44.1 Chronic Office TiffanyMS, obstructive EVENING [employer] N[employer] NURSE SUPERVISOR-C, CNM pulmonary disease w (acute) exacerbation J06.9 Acute upper respiratory infection, unspecified E11.9 Type 2 diabetes mellitus without complications R05 Cough E55.9 Vitamin D deficiency, unspecified I10 Essential (primary) hypertension Office Visit 11/14/2017 1:00p Primary Care Office Tiffany Daniel MS, R05 Cough EVENING [employer] N[employer] NURSE SUPERVISOR-C, CNM E55.9 Vitamin D deficiency, unspecified E11.9 Type 2 diabetes mellitus without complications Z23 Encounter for immunization R19.7 Diarrhea, unspecified Office Visit 11/03/2017 1:00p Primary Care Office Tiffany Daniel, , R05 Cough EVENING OR NIGHT NURSE SUPERVISOR-C, CNM E11.9 Type 2 diabetes mellitus without complications E78.5 Hyperlipidemia, unspecified E55.9 Vitamin D deficiency, unspecified M54.31 Sciatica, right side Office Visit 06/18/2017 1:00p Primary Care Shannan Akersa, E11.9 Type 2 diabetes Office MD mellitus without complications E78.5 Hyperlipidemia, unspecified I10 Essential (primary) hypertension E55.9 Vitamin D deficiency, unspecified 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 B35.1 Tinea unguium Office Visit 01/20/2017 9:20a Primary Care Oswald Siena, E11.9 Type 2 diabetes Office MD mellitus without complications E78.5 Hyperlipidemia, unspecified I10 Essential (primary) hypertension Office Visit 11/14/2016 3:20p Primary Care Siena Akers, J20.9 Acute bronchitis, Office MD unspecified Office Visit 07/03/2016 11:20a Primary Care Oswald Siena, E11.9 Type 2 diabetes Office MD mellitus without complications I10 Essential (primary) hypertension E78.5 Hyperlipidemia, unspecified E55.9 Vitamin D deficiency, unspecified Office Visit 02/16/2016 1:00p Primary Care Oswald, Siena, E11.9 Type 2 diabetes Office MD mellitus without complications I10 Essential (primary) hypertension E78.5 Hyperlipidemia, unspecified Office Visit 10/25/2015 3:20p Primary Care Oswald Siena, E11.9 Type 2 diabetes Office MD mellitus without complications I10 Essential (primary) hypertension E78.5 Hyperlipidemia, unspecified K52.9 Noninfective gastroenteritis and colitis, unspecified Office Visit 05/14/2012 Surgical Yael, 009.1 Colitis Enteritis & 1:00p Office Shar Del Angel Gastroenteritis M.DJacob Presumed Infectious Orig 562.10 Diverticulosis Colon W/O Hemorrhage Office Visit 04/09/2012 11:45a Surgical Office Yael, 569.3 Hemorrhage Christopher H., Rectum & Anus M.Preet 562.10 Diverticulosis Colon W/O Hemorrhage Office Visit 01/18/2010 9:15a Orthopaedic Office Sujit Benitez V67.4 Exam Follow Up MD Marga, FACS Treatment Healed Fracture V54.09 Other Aftercare Involving Internal Fixation Device Office Visit 07/17/2009 9:00a Orthopaedic Office Sujit Benitez 813.05 FX Radius MD Marga, FACS Head Closed 923.11 Contusion Elbow E885.9 Fall From Other Slipping,Tripping, Or Stumbling Plan of Treatment Future Appointment(s):12/22/2018 11:30 am - Tiffany Daniel MS, EVENING OR NIGHT NURSE SUPERVISOR-C, CNM at Primary [facility] Pbreoq1011/19/2018 3:00 pm - Junito Ortiz MD at 09/21/2018 - Tiffany Daniel, , EVENING OR NIGHT NURSE SUPERVISOR-C, CNMR10.84 Generalized abdominal painComments:-- Resolved. Monitor symptoms.--Has OV with Dr Ortiz on 11/19E11.9 Type 2 diabetes mellitus without complicationsComments:--HgA1C: 7.1 > 6.8 > 7 & gt; 6.8 > 6.9--Continue BP goal is <130/80 mmHg. --Diet: Include complex carbohydrates such as brown rice, whole wheat, quinoa, oatmeal, fruits, vegetables, beans, lentils. Avoid simple carbohydrates such as, sugar, pasta, white bread, flour, processed foods, bakedgoods.-- Patient has not had eye exam in a few years. Advised to make OV with Dr Duke, has notmake one yet. She states she will call this week. -- Patient advised to make podiatry OV. Patient states she is going to wait, as she does not have co pay.--Takes Metformin HCL ER 750 mg take one tablet by mouth every dayN17.9 Acute kidney failure, unspecifiedComments:--Maintain hydration--Avoid NSAIDS --GFR on 19 : 52, 19: 39, on 18: 47 >52 > 43--Cr 1.3 --Metformin will consider discontinuing if GFR 30-45 on RTO still.E78.5 Hyperlipidemia, unspecifiedComments:Total Cholesterol: 135 > 128 > 160Triglycerides: 206 & gt; 141 > 289High Density Lipids: 35 > 47 >45Low Density Lipids: 59 &gt ; 53 > 57--Follow a heart healthy diet that emphasizes fruits, vegetables, whole grains, poultry, fish, and nuts. --[place] [employer] recommends limiting saturated fats to 5-6 % of your daily calories and minimizing the amount of saturated fats and trans fatty acids that you eat. Saturated fats are typically solids at room temperature. Trans fatty acids are found in fried foods , baked goods.--A diet high in fiber can help lower cholesterol. --Decrease sugary food and beverages--Increase physical activity to 30 minutes on most days , as tolerated-- Non smokers should avoid second hand smoke. --Lose weight-- Taking Simvastatin 40 mg 1 tab by mouth every day.--Will monitor lipid panel and consider increasing statin if trigs still high. Trigs maybe elevated due to recent steroids.E87.6 HypokalemiaComments:--Potassium level: 3.2--Eat potassium rich foods such as bananas, potatoes (both sweet and white), beans (white, kidney, harris, lentils, split peas), yogurt, prunes, fish, winter squash, milk, O.J. --Printout given on potassium rich foods.AllFollow up:--Return to office in 3 months. Please get fasting labs 1 week prior to office visit. --Keep GI OV --Make Eye appointment at Dr Duke
== END 2018-10-13 17:50 | disposition home or self-care (01) ==
LOC: UCCORT 16:38
DX: M25.552 Pain in left hip (principal); M79.652 Pain in left thigh; E11.9 Type 2 diabetes mellitus without complications; Z79.84 Long term (current) use of oral hypoglycemic drugs; K21.9 Gastro-esophageal reflux disease without esophagitis; F17.210 Nicotine dependence, cigarettes, uncomplicated
CPT/HCPCS: 72192; 99212; G0463